=== PATIENT | female | born 1995 | race Caucasian/White ===

== ENCOUNTER → 2016-06-22 | Outpatient (CLI) | payer OTHER ==
--- NOTE | 2016-06-22 17:23 | XR ---
Right knee HISTORY: Right knee pain status post fall one week ago 3 views of the right knee No comparisons Bone mineralization, joint spaces and alignment are maintained. There is no joint effusion. IMPRESSION: No fracture or dislocation.
== END | disposition home or self-care (01) ==
LOC: RADXRMAIN 15:39
PROVIDERS: ATTEND Nurse Practitioner Family
DX: M25.561 Pain in right knee (principal)

== ENCOUNTER 2017-04-20 12:42 | Emergency (ER) | payer OTHER ==
[2017-04-20 12:52] VITALS: BP 126/66; PULSE 94; RESP 18; TEMP 98.2
[2017-04-20] MEDS ORDERED: IBUPROFEN 600 MG TAB PO STA (13:05)
--- NOTE | 2017-04-20 13:09 | ED ---
Abdominal Pain HPI - General Chief Complaint: Abdominal Pain Stated Complaint: Abd/ovary pain Time Seen by Provider: 04/20/17 12:53 Source: patient Mode of arrival: ambulatory Limitations: no limitations - History of Present Illness Initial Comments: 21 yoF presenting with constant, cramping, nonradiating LLQ pain that has been present since 04/12 when her LMP ended. Denies any alleviating or exacerbating factors. Has taken Motrin with some relief. She admits to yellow vaginal discharge as well. Denies being sexually active in the past 2 months, denies N/V /D, F/C. Denies dysuria, hematuria. - Related Data Previous Rx's Medication Instructions Recorded Fluconazole [Diflucan] 150 mg PO ONCE #1 tab 04/20/17 Ibuprofen [Motrin] 600 mg PO Q6HR PRN #20 tab 04/20/17 Nitrofurantoin Monohyd/M-Cryst 100 mg PO Q12HR 5 Days #10 cap 04/20/17 [Macrobid] metroNIDAZOLE [Flagyl] 500 mg PO BID #14 tab 04/20/17 Allergies Allergy/AdvReac Type Severity Reaction Status Date / Time citalopram [From Celexa] Allergy Rash/Hives Verified 04/20/17 12:52 Review of Systems ROS Statement: Those systems with pertinent positive or pertinent negative responses have been documented in the HPI. ROS Other: All systems not noted in ROS Statement are negative. Constitutional: Denies: fever, chills Respiratory: Denies: dyspnea Cardiovascular: Denies: chest pain Gastrointestinal: Reports: abdominal pain. Denies: nausea, vomiting, diarrhea Genitourinary: Reports: discharge. Denies: urgency, dysuria, frequency, hematuria Past Medical History Past Medical History: No Reported History History of Any Multi-Drug Resistant Organisms: None Reported Past Surgical History: No Surgical Hx Reported Additional Past Surgical History / Comment(s): Mole removed left axillary Past Psychological History: No Psychological Hx Reported Smoking Status: Current every day smoker Past Alcohol Use History: Occasional Past Drug Use History: Marijuana General Exam Limitations: no limitations General appearance: alert, in no apparent distress Head exam: Present: atraumatic, normocephalic Eye exam: Present: normal appearance Respiratory exam: Present: normal lung sounds bilaterally. Absent: respiratory distress, wheezes, rales Cardiovascular Exam: Present: regular rate, normal rhythm. Absent: bradycardia , tachycardia GI/Abdominal exam: Present: soft, tenderness (LLQ mild ). Absent: distended, guarding, rebound Speculum exam: Present: vaginal discharge. Absent: vaginal bleeding, foreign body, laceration By manual exam: Present: uterine tenderness. Absent: cervical motion tenderness , adnexal tenderness, adnexal mass, uterine enlargement Extremities exam: Present: full ROM Back exam: Present: full ROM Neurological exam: Present: alert, oriented X3 Psychiatric exam: Present: normal affect, normal mood Course Vital Signs 04/20/17 12:50 Temperature 98.2 F Pulse Rate 94 Respiratory 18 Rate Blood Pressure 126/66 O2 Sat by Pulse 98 Oximetry Medical Decision Making - Medical Decision Making 21 yoF presenting with LLQ pain. On initial exam the patient is awake, alert, and in NAD. VSS. Patient's abdomen is mildly tender to palpation in the LLQ. She is nonperitoneal. At this time unlikely patient is having an ovarian torsion due to the mildlness, onset, duration, and quality of her pain. No indication for imaging. 1325 Patient has some mild suprapubic tenderness on exam. She has declined pretreatment for STIs. Low conern for PID. She was instructed to abstain from sexual intercourse for the next 5 days. Will elect to treat for bacterial vaginosis due to findings on pelvic exam. Patient also found to have a UTI. Patient will be given prescription for diflucan after her UTI and bacterial vaginosis treatment. No further emergent workup indicated at this time. She was instructed to follow up with her PCP or OBGYN in the next 2-3 days and was given return to ED instructions. The patient was discharged in stable condition. - Lab Data Lab Results 04/20/17 04/20/17 Range/Units 13:05 13:05 Urine Color Yellow Urine Appearance Cloudy H (Clear) Urine pH 6.0 (5.0-8.0) Ur Specific [place] 1.013 (1.001-1.035) Urine Protein Negative (Negative) Urine Glucose (UA) Negative (Negative) Urine Ketones Negative (Negative) Urine Blood Negative (Negative) Urine Nitrite Negative (Negative) Urine Bilirubin Negative (Negative) Urine Urobilinogen <2.0 (<2.0) mg/dL Ur Leukocyte Esterase Large H (Negative) Urine RBC 2 (0-5) /hpf Urine WBC 15 H (0-5) /hpf Ur Squamous Epith Cells 5 H (0-4) /hpf Urine Mucus Rare H (None) /hpf Urine HCG, Qual Not Detected (Not Detectd) Disposition Clinical Impression: UTI (urinary tract infection), Bacterial vaginosis Disposition: HOME SELF-CARE Condition: Good Instructions: Urinary Tract Infection in Women (ED), Bacterial Vaginosis (ED), Acute Abdominal Pain (ED) Additional Instructions: Take Diflucan after completion of antibiotics if you have vaginal burning or discharge. Return if you abdominal pain is not controllable with Motrin and Tylenol, you are unable to tolerate food or liquids, or you develop a fever. DO NOT drink alcohol while taking the antibiotics because it can make you very sick. Abstain from sexual activity for the next one week. Prescriptions: Fluconazole [Diflucan] 150 mg PO ONCE #1 tab Ibuprofen [Motrin] 600 mg PO Q6HR PRN #20 tab PRN Reason: Pain metroNIDAZOLE [Flagyl] 500 mg PO BID #14 tab Nitrofurantoin Monohyd/M-Cryst [Macrobid] 100 mg PO Q12HR 5 Days #10 cap Referrals: None,Stated [Primary Care Provider] - 1-2 days
[2017-04-20 13:23] LABS: Appearance,Urine Cloudy (Clear); Bilirubin,Urine Negative (Negative); Blood,Urine Negative (Negative); Color,Urine Yellow; Glucose,Urine (UA) Negative (Negative); Ketones,Urine Negative (Negative); Leukocyte Esterase,Urine Large (Negative); Mucus,Urine Rare /hpf; Protein,Urine Negative (Negative); RBC,Urine 2 /hpf (0-5); Specific Gravity,Urine 1.013 (1.001-1.035); Squamous Epithelial Cell,Urine 5 /hpf (0-4); Urobilinogen,Urine <2.0 mg/dL (<2.0); WBC,Urine 15 /hpf (0-5)
[2017-04-21 13:49] LABS: C. trachomatis,PCR Positive (Neg,Equiv); Chlamydia trachomatis Source Cervix; N. gonorrhoeae,PCR Negative (Neg,Equiv); Neisseria Source Cervix
== END 2017-04-20 13:39 | disposition home or self-care (01) ==
LOC: EC 12:42
DX: N39.0 Urinary tract infection, site not specified (principal); N76.0 Acute vaginitis; B96.89 Other specified bacterial agents as the cause of diseases classified elsewhere; R10.32 Left lower quadrant pain; F17.200 Nicotine dependence, unspecified, uncomplicated; Z88.8 Allergy status to other drugs, medicaments and biological substances
CPT/HCPCS: 81001; 81025; 87070; 87205; 87491; 87591; 87808; 99284

== ENCOUNTER 2018-01-18 03:53 | Emergency (ER) | payer OTHER ==
[2018-01-18] MEDS ORDERED: DEXTROSE 5%-0.45% NACL 1,000 ML IV ONE ×2 (04:25→06:01)
--- NOTE | 2018-01-18 04:31 | ED ---
General Adult HPI - General Chief complaint: Abdominal Pain Stated complaint: Abd Pain, 16 weeks Preg Time Seen by Provider: 01/18/18 04:16 Source: patient Mode of arrival: ambulatory Limitations: no limitations - History of Present Illness Initial comments: This patient is a 22-year-old woman who presents with complaint that she has been having some nausea and vomiting going on for about 2 days and then today also some lower abdominal cramping. The patient states that she believes she is probably had about 5 episodes of vomiting over the course of today. The abdominal pain as a cramping, intermittent, mild intensity. She has not noted worsening or relieving factors. Onset/Timin -: days(s) Location: abdomen Radiation: non-radiation Quality: other (Cramping) Consistency: intermittent Improves with: none Worsens with: none Associated Symptoms: nausea/vomiting - Related Data Previous Rx's Medication Instructions Recorded Fluconazole [Diflucan] 150 mg PO ONCE #1 tab 04/20/17 Ibuprofen [Motrin] 600 mg PO Q6HR PRN #20 tab 04/20/17 Nitrofurantoin Monohyd/M-Cryst 100 mg PO Q12HR 5 Days #10 cap 04/20/17 [Macrobid] metroNIDAZOLE [Flagyl] 500 mg PO BID #14 tab 04/20/17 Allergies Allergy/AdvReac Type Severity Reaction Status Date / Time citalopram [From Celexa] Allergy Rash/Hives Verified 01/18/18 04:00 Review of Systems ROS Statement: Those systems with pertinent positive or pertinent negative responses have been documented in the HPI. ROS Other: All systems not noted in ROS Statement are negative. Constitutional: Denies: fever, chills Respiratory: Denies: cough, dyspnea Cardiovascular: Denies: chest pain, palpitations Gastrointestinal: Reports: abdominal pain, nausea, vomiting. Denies: diarrhea, constipation Genitourinary: Denies: dysuria, frequency, hematuria, discharge, abnormal menses Musculoskeletal: Reports: back pain Skin: Denies: rash Neurological: Denies: headache, weakness, numbness Past Medical History Past Medical History: No Reported History History of Any Multi-Drug Resistant Organisms: None Reported Past Surgical History: No Surgical Hx Reported Additional Past Surgical History / Comment(s): Mole removed left axillary Past Psychological History: No Psychological Hx Reported Smoking Status: Current every day smoker Past Alcohol Use History: None Reported Past Drug Use History: Marijuana General Exam Limitations: no limitations General appearance: alert, in no apparent distress Head exam: Present: atraumatic, normocephalic Eye exam: Present: normal appearance. Absent: scleral icterus, conjunctival injection ENT exam: Present: normal oropharynx Neck exam: Present: normal inspection Respiratory exam: Present: normal lung sounds bilaterally. Absent: respiratory distress, wheezes, rales, rhonchi, stridor Cardiovascular Exam: Present: regular rate, normal rhythm, normal heart sounds. Absent: systolic murmur, diastolic murmur, rubs, gallop GI/Abdominal exam: Present: soft. Absent: distended, tenderness, guarding, rebound, rigid, mass Extremities exam: Present: normal inspection, normal capillary refill. Absent: pedal edema, calf tenderness Back exam: Present: normal inspection. Absent: CVA tenderness (R), CVA tenderness (L) Neurological exam: Present: alert Skin exam: Present: warm, dry, intact, normal color. Absent: rash Course Vital Signs 01/18/18 03:56 Temperature 97.9 F Pulse Rate 104 H Respiratory 18 Rate Blood Pressure 139/82 O2 Sat by Pulse 97 Oximetry Medical Decision Making - Lab Data Result diagrams: 01/18/18 04:10 01/18/18 04:10 Lab Results 01/18/18 01/18/18 01/18/18 Range/Units 04:10 04:10 05:31 WBC 13.4 H (3.8-10.6) k/uL RBC 4.89 (3.80-5.40) m/uL Hgb 13.5 (11.4-16.0) gm/dL Hct 39.8 (34.0-46.0) % MCV 81.5 (80.0-100.0) fL MCH 27.6 (25.0-35.0) pg MCHC 33.8 (31.0-37.0) g/dL RDW 12.9 (11.5-15.5) % Plt Count 248 (150-450) k/uL Neutrophils % 78 % Lymphocytes % 15 % Monocytes % 5 % Eosinophils % 1 % Basophils % 0 % Neutrophils # 10.5 H (1.3-7.7) k/uL Lymphocytes # 2.0 (1.0-4.8) k/uL Monocytes # 0.7 (0-1.0) k/uL Eosinophils # 0.1 (0-0.7) k/uL Basophils # 0.0 (0-0.2) k/uL Sodium 136 L (137-145) mmol/L Potassium 4.3 (3.5-5.1) mmol/L Chloride 106 (98-107) mmol/L Carbon Dioxide 21 L (22-30) mmol/L Anion Gap 9 mmol/L BUN 11 (7-17) mg/dL Creatinine 0.67 (0.52-1.04) mg/dL Est GFR (CKD-EPI)AfAm >90 (>60 ml/min/1.73 sqM) Est GFR (CKD-EPI)NonAf >90 (>60 ml/min/1.73 sqM) Glucose 100 H (74-99) mg/dL Calcium 9.3 (8.4-10.2) mg/dL Total Bilirubin 0.5 (0.2-1.3) mg/dL AST 21 (14-36) U/L ALT 26 (9-52) U/L Alkaline Phosphatase 56 (38-126) U/L Total Protein 6.7 (6.3-8.2) g/dL Albumin 3.8 (3.5-5.0) g/dL Amylase 32 (30-110) U/L Lipase 19 L (23-300) U/L Urine Color Light Yellow Urine Appearance Clear (Clear) Urine pH 5.5 (5.0-8.0) Ur Specific [place] 1.003 (1.001-1.035) Urine Protein Negative (Negative) Urine Glucose (UA) 4+ H (Negative) Urine Ketones 1+ H (Negative) Urine Blood Negative (Negative) Urine Nitrite Negative (Negative) Urine Bilirubin Negative (Negative) Urine Urobilinogen <2.0 (<2.0) mg/dL Ur Leukocyte Esterase Negative (Negative) Disposition Clinical Impression: Vomiting affecting Disposition: HOME SELF-CARE Condition: Good Instructions: Hyperemesis Gravidarum (ED) Is patient prescribed a controlled substance at d/c from ED?: No Referrals: Feliz Medina DO [Primary Care Provider] - 1-2 days
[2018-01-18 04:44] LABS: Basophils % (A) 0 %; Eosinophils # (A) 0.1 k/uL (0-0.7); Eosinophils % (A) 1 %; HCT 39.8 % (34.0-46.0); HGB 13.5 gm/dL (11.4-16.0); Lymphocytes % (A) 15 %; MCH 27.6 pg (25.0-35.0); MCHC 33.8 g/dL (31.0-37.0); MCV 81.5 fL (80.0-100.0); Mean Platelet Volume 6.9; Monocytes # (A) 0.7 k/uL (0-1.0); Monocytes % (A) 5 %; Neutrophils # (A) 10.5 k/uL (1.3-7.7); Neutrophils % (A) 78 %; Platelet Count 248 k/uL (150-450); RBC 4.89 m/uL (3.80-5.40); RDW 12.9 % (11.5-15.5); WBC 13.4 k/uL (3.8-10.6)
[2018-01-18 04:45] LABS: ALT 26 U/L (9-52); AST 21 U/L (14-36); Albumin 3.8 g/dL (3.5-5.0); Alkaline Phosphatase 56 U/L (38-126); Amylase 32 U/L (30-110); Anion Gap 9 mmol/L; Blood Urea Nitrogen 11 mg/dL (7-17); Calcium 9.3 mg/dL (8.4-10.2); Carbon Dioxide 21 mmol/L (22-30); Chloride 106 mmol/L (98-107); Glucose 100 mg/dL (74-99); Lipase 19 U/L (23-300); Potassium 4.3 mmol/L (3.5-5.1); Sodium 136 mmol/L (137-145); Total Bilirubin 0.5 mg/dL (0.2-1.3); Total Protein 6.7 g/dL (6.3-8.2)
[2018-01-18 05:44] LABS: Appearance,Urine Clear (Clear); Bilirubin,Urine Negative (Negative); Blood,Urine Negative (Negative); Color,Urine Light Yellow; Glucose,Urine (UA) 4+ (Negative); Ketones,Urine 1+ (Negative); Leukocyte Esterase,Urine Negative (Negative); Nitrite,Urine Negative (Negative); PH, Urine 5.5 (5.0-8.0); Protein,Urine Negative (Negative); Specific Gravity,Urine 1.003 (1.001-1.035); Urobilinogen,Urine <2.0 mg/dL (<2.0)
[2018-01-18 06:57] VITALS: BP 113/75; PULSE 66; RESP 20; TEMP 98.3
== END 2018-01-18 08:22 | disposition home or self-care (01) ==
LOC: EC 03:53
DX: O21.9 Vomiting of pregnancy, unspecified (principal); O99.89 Other specified diseases and conditions complicating pregnancy, childbirth and the puerperium; R10.30 Lower abdominal pain, unspecified; O99.332 Smoking (tobacco) complicating pregnancy, second trimester; F17.200 Nicotine dependence, unspecified, uncomplicated; Z3A.16 16 weeks gestation of pregnancy; Z88.8 Allergy status to other drugs, medicaments and biological substances
CPT/HCPCS: 36415; 80053; 81003; 82150; 83690; 85025; 96360; 96361; 99284

== ENCOUNTER 2018-12-13 19:26 | Observation (INO) | payer OTHER ==
[2018-12-13] MEDS ORDERED: ONDANSETRON 4 MG/2 ML VIAL IVP STA (20:49)
[2018-12-13] MEDS ORDERED: KETOROLAC 30 MG/ML 1 ML VIAL IVP STA (20:49)
[2018-12-13] MEDS ORDERED: SODIUM CHLORIDE 0.9% 1,000 ML IV STA (20:49)
[2018-12-13 21:22] LABS: Basophils # (A) 0.2 k/uL (0-0.2); Basophils % (A) 1 %; Eosinophils # (A) 0.3 k/uL (0-0.7); Eosinophils % (A) 2 %; HCT 43.4 % (34.0-46.0); HGB 13.9 gm/dL (11.4-16.0); Lymphocytes # (A) 2.6 k/uL (1.0-4.8); Lymphocytes % (A) 16 %; MCH 25.5 pg (25.0-35.0); MCHC 32.1 g/dL (31.0-37.0); MCV 79.5 fL (80.0-100.0); Mean Platelet Volume 6.5; Monocytes # (A) 0.8 k/uL (0-1.0); Monocytes % (A) 5 %; Neutrophils % (A) 75 %; Platelet Count 330 k/uL (150-450); RBC 5.47 m/uL (3.80-5.40); RDW 13.4 % (11.5-15.5); WBC 16.1 k/uL (3.8-10.6)
[2018-12-13 21:40] LABS: ALT 31 U/L (9-52); AST 33 U/L (14-36); African American GFR (CKD) >90 (>60 ml/min/1.73 sqM); Albumin 4.2 g/dL (3.5-5.0); Alkaline Phosphatase 93 U/L (38-126); Amylase 40 U/L (30-110); Anion Gap 9 mmol/L; Blood Urea Nitrogen 17 mg/dL (7-17); Calcium 9.3 mg/dL (8.4-10.2); Carbon Dioxide 26 mmol/L (22-30); Chloride 107 mmol/L (98-107); Glucose 112 mg/dL (74-99); Potassium 4.1 mmol/L (3.5-5.1); Sodium 142 mmol/L (137-145); Total Bilirubin 0.3 mg/dL (0.2-1.3); Total Protein 7.6 g/dL (6.3-8.2)
--- NOTE | 2018-12-13 21:52 | US ---
EXAMINATION TYPE: US abdomen limited DATE OF EXAM: 12/13/2018 COMPARISON: NONE CLINICAL HISTORY: Right upper quadrant. Epigastric pain x 3 hours. Nausea/vomiting. EXAM MEASUREMENTS: Liver Length: 17.4 cm Gallbladder Wall: 0.29 cm CBD: 0.54 cm Right Kidney: 12.6 x 5.6 x 4.8 cm Patient gassy, patient 295 lbs. Pancreas: Limited due to overlying bowel gas Liver: Measures upper limits of normal Gallbladder: Multiple hyperechoic foci with posterior shadowing seen within the gallbladder Evidence for sonographic Huber's sign: yes CBD: appears wnl Right Kidney: Measures upper limits of normal vs. slightly enlarged. IMPRESSION: There are numerous gallstones. No dilated ducts. Distended gallbladder.
[2018-12-13 22:15] LABS: Bacteria,Urine Occasional /hpf; Mucus,Urine Rare /hpf; Squamous Epithelial Cell,Urine 7 /hpf (0-4)
[2018-12-13 22:20] LABS: Appearance,Urine Bloody (Clear)
[2018-12-13 22:21] LABS: Color,Urine Red; RBC,Urine >182 /hpf (0-5)
--- NOTE | 2018-12-13 23:12 | ED ---
Abdominal Pain HPI - General Chief Complaint: Abdominal Pain Stated Complaint: abd pain Time Seen by Provider: 12/13/18 19:46 Source: patient Mode of arrival: ambulatory Limitations: no limitations - History of Present Illness Initial Comments: 23-year-old female patient presents to the emergency department today for evaluation of upper abdominal pain and vomiting. Patient states pain has been present for the last 3 hours. States it started right after eating a piece of pizza. Patient states she has had similar episodes in the past but none ever l asted this long. States pain is in her midepigastric and right upper quadrant. She state it raditaes to her back and bilateral shoulders. Patient states that she has vomited several times since symptom onset. Denies fever or chills. Denies any constipation or diarrhea. Patient states she has had the past and no other abdominal surgeries. She denies any recent travel or sick contacts. Denies any recent antibiotic use. Patient denies any recent rash, shortness breath, chest pain, back pain, numbness, tingling, dizziness, weakness, hematuria, dysuria, urinary urgency, urinary frequency, headache, visual changes, or any other complaints. Patient is on her period. Denies chance of . - Related Data Home Medications Medication Instructions Recorded Confirmed Famotidine 20 mg PO BID PRN 12/13/18 12/13/18 Omeprazole 20 mg PO DAILY PRN 12/13/18 12/13/18 Ibuprofen [Motrin] 800 mg PO TID PRN 12/14/18 12/14/18 Allergies Allergy/AdvReac Type Severity Reaction Status Date / Time citalopram [From Celexa] Allergy Rash/Hives Verified 12/14/18 00:26 Review of Systems ROS Statement: Those systems with pertinent positive or pertinent negative responses have been documented in the HPI. ROS Other: All systems not noted in ROS Statement are negative. Past Medical History Past Medical History: No Reported History History of Any Multi-Drug Resistant Organisms: None Reported Past Surgical History: No Surgical Hx Reported, Section Additional Past Surgical History / Comment(s): Mole removed left axillary Past Psychological History: No Psychological Hx Reported Smoking Status: Current every day smoker Past Alcohol Use History: Occasional Past Drug Use History: Marijuana General Exam Limitations: no limitations General appearance: alert, in no apparent distress, other (This is a well- developed, well-nourished adult female patient in no acute distress. Vital signs upon presentation are temperature 97.4F, pulse 71, respirations 20, blood pressure 133/73, pulse ox 100% on room air.) Eye exam: Present: normal appearance, PERRL, EOMI. Absent: scleral icterus, conjunctival injection, periorbital swelling ENT exam: Present: normal exam, normal oropharynx, mucous membranes moist Respiratory exam: Present: normal lung sounds bilaterally. Absent: respiratory distress, wheezes, rales, rhonchi, stridor Cardiovascular Exam: Present: regular rate, normal rhythm, normal heart sounds. Absent: systolic murmur, diastolic murmur, rubs, gallop, clicks GI/Abdominal exam: Present: soft, tenderness (midepigastric and right upper quadrant tenderness. Positive huber's sign.), normal bowel sounds. Absent: distended, guarding, rebound, rigid Back exam: Present: normal inspection. Absent: CVA tenderness (R), CVA tenderness (L) Neurological exam: Present: alert, oriented X3, CN II-XII intact Psychiatric exam: Present: normal affect, normal mood Skin exam: Present: warm, dry, intact, normal color. Absent: rash Course Vital Signs 12/13/18 12/13/18 12/14/18 19:41 23:03 00:15 Temperature 97.4 F L 97.4 F L Pulse Rate 71 81 68 Respiratory 20 16 18 Rate Blood Pressure 133/73 125/74 136/92 O2 Sat by Pulse 100 99 98 Oximetry Medical Decision Making - Medical Decision Making 23-year-old female patient presented to the emergency department today for evaluation of midepigastric abdominal pain and vomiting. Physical examination did reveal midepigastric and right upper quadrant tenderness. Positive Huber sign. Labs reviewed and did reveal elevated white blood cell count at 16,000. Ultrasound was obtained and did show evidence for cholelithiasis and distended gallbladder. She'll be admitted for further evaluation by surgical services. Dr. Farrell is accepting. - Lab Data Result diagrams: 12/13/18 21:03 12/13/18 21:03 Lab Results 12/13/18 12/13/18 12/13/18 Range/Units 21:03 21:03 21:42 WBC 16.1 H (3.8-10.6) k/uL RBC 5.47 H (3.80-5.40) m/uL Hgb 13.9 (11.4-16.0) gm/dL Hct 43.4 (34.0-46.0) % MCV 79.5 L (80.0-100.0) fL MCH 25.5 (25.0-35.0) pg MCHC 32.1 (31.0-37.0) g/dL RDW 13.4 (11.5-15.5) % Plt Count 330 (150-450) k/uL Neutrophils % 75 % Lymphocytes % 16 % Monocytes % 5 % Eosinophils % 2 % Basophils % 1 % Neutrophils # 12.0 H (1.3-7.7) k/uL Lymphocytes # 2.6 (1.0-4.8) k/uL Monocytes # 0.8 (0-1.0) k/uL Eosinophils # 0.3 (0-0.7) k/uL Basophils # 0.2 (0-0.2) k/uL Sodium 142 (137-145) mmol/L Potassium 4.1 (3.5-5.1) mmol/L Chloride 107 (98-107) mmol/L Carbon Dioxide 26 (22-30) mmol/L Anion Gap 9 mmol/L BUN 17 (7-17) mg/dL Creatinine 0.71 (0.52-1.04) mg/dL Est GFR (CKD-EPI)AfAm >90 (>60 ml/min/1.73 sqM) Est GFR (CKD-EPI)NonAf >90 (>60 ml/min/1.73 sqM) Glucose 112 H (74-99) mg/dL Calcium 9.3 (8.4-10.2) mg/dL Total Bilirubin 0.3 (0.2-1.3) mg/dL AST 33 (14-36) U/L ALT 31 (9-52) U/L Alkaline Phosphatase 93 (38-126) U/L Total Protein 7.6 (6.3-8.2) g/dL Albumin 4.2 (3.5-5.0) g/dL Amylase 40 (30-110) U/L Lipase 27 (23-300) U/L Urine Color Urine Appearance (Clear) Urine RBC (0-5) /hpf Ur Squamous Epith Cells (0-4) /hpf Urine Bacteria (None) /hpf Urine Mucus (None) /hpf Urine HCG, Qual Not Detected (Not Detectd) 12/13/18 Range/Units 21:42 WBC (3.8-10.6) k/uL RBC (3.80-5.40) m/uL Hgb (11.4-16.0) gm/dL Hct (34.0-46.0) % MCV (80.0-100.0) fL MCH (25.0-35.0) pg MCHC (31.0-37.0) g/dL RDW (11.5-15.5) % Plt Count (150-450) k/uL Neutrophils % % Lymphocytes % % Monocytes % % Eosinophils % % Basophils % % Neutrophils # (1.3-7.7) k/uL Lymphocytes # (1.0-4.8) k/uL Monocytes # (0-1.0) k/uL Eosinophils # (0-0.7) k/uL Basophils # (0-0.2) k/uL Sodium (137-145) mmol/L Potassium (3.5-5.1) mmol/L Chloride (98-107) mmol/L Carbon Dioxide (22-30) mmol/L Anion Gap mmol/L BUN (7-17) mg/dL Creatinine (0.52-1.04) mg/dL Est GFR (CKD-EPI)AfAm (>60 ml/min/1.73 sqM) Est GFR (CKD-EPI)NonAf (>60 ml/min/1.73 sqM) Glucose (74-99) mg/dL Calcium (8.4-10.2) mg/dL Total Bilirubin (0.2-1.3) mg/dL AST (14-36) U/L ALT (9-52) U/L Alkaline Phosphatase (38-126) U/L Total Protein (6.3-8.2) g/dL Albumin (3.5-5.0) g/dL Amylase (30-110) U/L Lipase (23-300) U/L Urine Color Red Urine Appearance Bloody H (Clear) Urine RBC >182 H (0-5) /hpf Ur Squamous Epith Cells 7 H (0-4) /hpf Urine Bacteria Occasional H (None) /hpf Urine Mucus Rare H (None) /hpf Urine HCG, Qual (Not Detectd) - Radiology Data Radiology results: report reviewed Ultrasound of the abdomen is obtained. Report was reviewed in its entirety. Impression by Dr. Bradford shows numerous gallstones. No dilated ducts. Distended gallbladder. Disposition Clinical Impression: Cholelithiasis, Abdominal pain Disposition: ADMITTED IP TO THIS [facility] Condition: Serious Decision to Admit Reason: Admit from EC Decision Date: 12/13/18 Decision Time: 23:57
[2018-12-13] MEDS ORDERED: NALOXONE 0.4 MG/ML 1 ML VIAL IV PRN (23:40)
[2018-12-13] MEDS ORDERED: ONDANSETRON 4 MG/2 ML VIAL IVP PRN (23:40)
[2018-12-13] MEDS: SODIUM CHLORIDE 0.9% 1,000 ML IV SCH (23:53)
--- NOTE | 2018-12-14 08:07 | P.GSHP ---
<Natalie Murray A - Last Filed: 12/14/18 08:01> History of Present Illness H&P Date: 12/14/18 Chief Complaint: abdominal pain CHIEF COMPLAINT: Abdominal pain HISTORY OF PRESENT ILLNESS: A 23-year-old female presented to the emergency room with a chief complaint of abdominal pain. Patient states she began having mid abdominal/epigastric pain that began yesterday around 6 PM. She states that the time she was sitting on the couch watching TV. She had recently finished eating dinner. She reports eating pizza when shortly afterwards she began having severe pain. She states the pain radiated up to her chest, into her shoulders, and into her back. She also reports nausea and vomiting yesterday which have since resolved. patient reports she has had multiple episodes of similar pain in the past but this is the worst it has been. She gave 5 months ago. She states she began having episodes when she was 11 weeks . She was evaluated at [facility] in October 2018 and was prescribed Pepcid and omeprazole. She states sometimes this helps her symptoms but yesterday after she took them she had no relief. PAST MEDICAL HISTORY: See list. PAST SURGICAL HISTORY: See list. SOCIAL HISTORY: No illicit drug use. REVIEW OF SYSTEMS: CONSTITUTIONAL: Denies fever or chills. HEENT: Denies blurred vision, vision changes, or eye pain. Denies hemoptysis CARDIOVASCULAR: Denies chest pain or pressure. RESPIRATORY: No shortness of breath. GASTROINTESTINAL: Refer to HPI for pertinent findings HEMATOLOGIC: Denies bleeding disorders. GENITOURINARY: Denies any blood in urine. SKIN: Denies pruitis. Denies rash. PHYSICAL EXAM: VITAL SIGNS: Reviewed. GENERAL: Well-developed in no acute distress. HEENT: No sclera icterus. Extraocular movements grossly intact. Moist buccal mucosa. Head is atraumatic, normocephalic. ABDOMEN: Obese. Soft. Nondistended. Tenderness with palpation to right upper quadrant. NEUROLOGIC: Alert and oriented. Cranial nerves II through XII grossly intact. LABORATORY DATA: WBC 16.1. Hemoglobin 13.9. Platelet count 330. Bilirubin 0.3. AST 33. ALT 31. Amylase 40. Lipase 27. IMAGING: Ultrasound abdomen: Numerous gallstones. No dilated ducts. Distended gallbladder. Positive Sonographic Huber sign. ASSESSMENT: 1. Abdominal pain, nausea, vomiting 2. Cholelithiasis 3. Leukocytosis PLAN: NPO. Monitor WBC. Begin Zosyn. Continue IV fluids. Repeat CBC and CMP this morning. Patient to undergo laparoscopic cholecystectomy today with Dr. Farrell. Nurse practitioner note has been reviewed by physician. Signing provider agrees with the documented findings, assessment, and plan of care. Past Medical History Past Medical History: No Reported History History of Any Multi-Drug Resistant Organisms: None Reported Past Surgical History: No Surgical Hx Reported, Section Additional Past Surgical History / Comment(s): Mole removed left axillary Past Psychological History: No Psychological Hx Reported Smoking Status: Current every day smoker Past Alcohol Use History: Occasional Past Drug Use History: Marijuana - Past Family History Father Additional Family Medical History / Comment(s): neck fusion, lyme disease Mother Family Medical History: Diabetes Mellitus, Hypertension Additional Family Medical History / Comment(s): Arthritis Medications and Allergies Home Medications Medication Instructions Recorded Confirmed Type Famotidine 20 mg PO BID PRN 12/13/18 12/13/18 History Omeprazole 20 mg PO DAILY PRN 12/13/18 12/13/18 History Hydrocodone/Acetaminophen [[place] 1 tab PO Q6HR PRN 3 Days #12 tab 12/14/18 Rx 5-325] Ibuprofen [Motrin] 800 mg PO TID PRN 12/14/18 12/14/18 History Allergies Allergy/AdvReac Type Severity Reaction Status Date / Time citalopram [From Celexa] Allergy Rash/Hives Verified 12/14/18 00:26 Surgical - Exam Vital Signs Temp Pulse Resp BP Pulse Ox 97.4 F L 71 20 133/73 100 12/13/18 19:41 12/13/18 19:41 12/13/18 19:41 12/13/18 19:41 12/13/18 19:41 Results - Labs 12/13/18 21:03 12/13/18 21:03 Abnormal Lab Results - Last 24 Hours (Table) 12/13/18 12/13/18 12/13/18 Range/Units 21:03 21:03 21:42 WBC 16.1 H (3.8-10.6) k/uL RBC 5.47 H (3.80-5.40) m/uL MCV 79.5 L (80.0-100.0) fL Neutrophils # 12.0 H (1.3-7.7) k/uL Glucose 112 H (74-99) mg/dL Urine Appearance Bloody H (Clear) Urine RBC >182 H (0-5) /hpf Ur Squamous Epith Cells 7 H (0-4) /hpf Urine Bacteria Occasional H (None) /hpf Urine Mucus Rare H (None) /hpf Diabetes panel 12/13/18 Range/Units 21:03 Sodium 142 (137-145) mmol/L Potassium 4.1 (3.5-5.1) mmol/L Chloride 107 (98-107) mmol/L Carbon Dioxide 26 (22-30) mmol/L BUN 17 (7-17) mg/dL Creatinine 0.71 (0.52-1.04) mg/dL Glucose 112 H (74-99) mg/dL Calcium 9.3 (8.4-10.2) mg/dL AST 33 (14-36) U/L ALT 31 (9-52) U/L Alkaline Phosphatase 93 (38-126) U/L Total Protein 7.6 (6.3-8.2) g/dL Albumin 4.2 (3.5-5.0) g/dL Calcium panel 12/13/18 Range/Units 21:03 Calcium 9.3 (8.4-10.2) mg/dL Albumin 4.2 (3.5-5.0) g/dL Pituitary panel 12/13/18 Range/Units 21:03 Sodium 142 (137-145) mmol/L Potassium 4.1 (3.5-5.1) mmol/L Chloride 107 (98-107) mmol/L Carbon Dioxide 26 (22-30) mmol/L BUN 17 (7-17) mg/dL Creatinine 0.71 (0.52-1.04) mg/dL Glucose 112 H (74-99) mg/dL Calcium 9.3 (8.4-10.2) mg/dL Adrenal panel 12/13/18 Range/Units 21:03 Sodium 142 (137-145) mmol/L Potassium 4.1 (3.5-5.1) mmol/L Chloride 107 (98-107) mmol/L Carbon Dioxide 26 (22-30) mmol/L BUN 17 (7-17) mg/dL Creatinine 0.71 (0.52-1.04) mg/dL Glucose 112 H (74-99) mg/dL Calcium 9.3 (8.4-10.2) mg/dL Total Bilirubin 0.3 (0.2-1.3) mg/dL AST 33 (14-36) U/L ALT 31 (9-52) U/L Alkaline Phosphatase 93 (38-126) U/L Total Protein 7.6 (6.3-8.2) g/dL Albumin 4.2 (3.5-5.0) g/dL <Dominick Farrell - Last Filed: 12/14/18 14:53> History of Present Illness As above. Patient with acute cholecystitis. We'll proceed with laparoscopic, possible open cholecystectomy today. Risks of bleeding, infection, bile leak, bile duct injury, retained common bile duct stone, trocar injury, conversion to an open procedure, hernia, anesthesia related complications were reviewed. The patient understands and wishes to proceed. Surgical - Exam Vital Signs Temp Pulse Resp BP Pulse Ox 97.4 F L 71 20 133/73 100 12/13/18 19:41 12/13/18 19:41 12/13/18 19:41 12/13/18 19:41 12/13/18 19:41 Results - Labs 12/14/18 08:37 12/14/18 08:37 Abnormal Lab Results - Last 24 Hours (Table) 12/13/18 12/13/18 12/13/18 Range/Units 21:03 21:03 21:42 WBC 16.1 H (3.8-10.6) k/uL RBC 5.47 H (3.80-5.40) m/uL MCV 79.5 L (80.0-100.0) fL Neutrophils # 12.0 H (1.3-7.7) k/uL Chloride (98-107) mmol/L Glucose 112 H (74-99) mg/dL Urine Appearance Bloody H (Clear) Urine RBC >182 H (0-5) /hpf Ur Squamous Epith Cells 7 H (0-4) /hpf Urine Bacteria Occasional H (None) /hpf Urine Mucus Rare H (None) /hpf 12/14/18 Range/Units 08:37 WBC (3.8-10.6) k/uL RBC (3.80-5.40) m/uL MCV (80.0-100.0) fL Neutrophils # (1.3-7.7) k/uL Chloride 109 H (98-107) mmol/L Glucose (74-99) mg/dL Urine Appearance (Clear) Urine RBC (0-5) /hpf Ur Squamous Epith Cells (0-4) /hpf Urine Bacteria (None) /hpf Urine Mucus (None) /hpf Diabetes panel 12/13/18 12/14/18 Range/Units 21:03 08:37 Sodium 142 143 (137-145) mmol/L Potassium 4.1 4.3 (3.5-5.1) mmol/L Chloride 107 109 H (98-107) mmol/L Carbon Dioxide 26 29 (22-30) mmol/L BUN 17 15 (7-17) mg/dL Creatinine 0.71 0.80 (0.52-1.04) mg/dL Glucose 112 H 94 (74-99) mg/dL Calcium 9.3 8.8 (8.4-10.2) mg/dL AST 33 27 (14-36) U/L ALT 31 40 (9-52) U/L Alkaline Phosphatase 93 74 (38-126) U/L Total Protein 7.6 6.4 (6.3-8.2) g/dL Albumin 4.2 3.5 (3.5-5.0) g/dL Calcium panel 12/13/18 12/14/18 Range/Units 21:03 08:37 Calcium 9.3 8.8 (8.4-10.2) mg/dL Albumin 4.2 3.5 (3.5-5.0) g/dL Pituitary panel 12/13/18 12/14/18 Range/Units 21:03 08:37 Sodium 142 143 (137-145) mmol/L Potassium 4.1 4.3 (3.5-5.1) mmol/L Chloride 107 109 H (98-107) mmol/L Carbon Dioxide 26 29 (22-30) mmol/L BUN 17 15 (7-17) mg/dL Creatinine 0.71 0.80 (0.52-1.04) mg/dL Glucose 112 H 94 (74-99) mg/dL Calcium 9.3 8.8 (8.4-10.2) mg/dL Adrenal panel 12/13/18 12/14/18 Range/Units 21:03 08:37 Sodium 142 143 (137-145) mmol/L Potassium 4.1 4.3 (3.5-5.1) mmol/L Chloride 107 109 H (98-107) mmol/L Carbon Dioxide 26 29 (22-30) mmol/L BUN 17 15 (7-17) mg/dL Creatinine 0.71 0.80 (0.52-1.04) mg/dL Glucose 112 H 94 (74-99) mg/dL Calcium 9.3 8.8 (8.4-10.2) mg/dL Total Bilirubin 0.3 0.6 (0.2-1.3) mg/dL AST 33 27 (14-36) U/L ALT 31 40 (9-52) U/L Alkaline Phosphatase 93 74 (38-126) U/L Total Protein 7.6 6.4 (6.3-8.2) g/dL Albumin 4.2 3.5 (3.5-5.0) g/dL
[2018-12-14] MEDS: PANTOPRAZOLE 40 MG/10 ML VIAL IVP SCH (08:31)
[2018-12-14] MEDS: PIPERACILLIN-TAZOBACTAM 3.375 GM in SODIUM CHLORIDE 0.9% 100 ML IVPB SCH ×2 (08:31→17:53)
[2018-12-14 09:07] LABS: ALT 40 U/L (9-52); AST 27 U/L (14-36); African American GFR (CKD) >90 (>60 ml/min/1.73 sqM); Albumin 3.5 g/dL (3.5-5.0); Alkaline Phosphatase 74 U/L (38-126); Anion Gap 5 mmol/L; Blood Urea Nitrogen 15 mg/dL (7-17); Calcium 8.8 mg/dL (8.4-10.2); Carbon Dioxide 29 mmol/L (22-30); Chloride 109 mmol/L (98-107); Glucose 94 mg/dL (74-99); Potassium 4.3 mmol/L (3.5-5.1); Sodium 143 mmol/L (137-145); Total Bilirubin 0.6 mg/dL (0.2-1.3); Total Protein 6.4 g/dL (6.3-8.2)
[2018-12-14 09:14] LABS: Basophils % (A) 0 %; Eosinophils # (A) 0.3 k/uL (0-0.7); Eosinophils % (A) 3 %; HCT 37.9 % (34.0-46.0); HGB 12.3 gm/dL (11.4-16.0); Lymphocytes % (A) 20 %; MCH 26.3 pg (25.0-35.0); MCHC 32.5 g/dL (31.0-37.0); MCV 80.9 fL (80.0-100.0); Mean Platelet Volume 5.8; Monocytes # (A) 0.5 k/uL (0-1.0); Monocytes % (A) 5 %; Neutrophils % (A) 69 %; Platelet Count 304 k/uL (150-450); RBC 4.68 m/uL (3.80-5.40); WBC 10.2 k/uL (3.8-10.6)
[2018-12-14] MEDS ORDERED: IV FLUID CONTINUATION 1,000 ML IV ONE (13:58)
[2018-12-14] MEDS: ONDANSETRON 4 MG/2 ML VIAL IVP ONE ×2 (14:19→16:50)
[2018-12-14] MEDS ORDERED: DEXAMETHASONE SOD PHOSPHATE 10 MG/ML 1 ML VIAL IV ONE (14:20)
[2018-12-14] MEDS ORDERED: SCOPOLAMINE 1.5MG/72HR PATCH TRANSDERM ONE (14:20)
[2018-12-14] MEDS ORDERED: HEPARIN SODIUM,PORCINE 5,000 UNIT/ML 1 ML VIAL SQ ONE (14:53)
[2018-12-14] MEDS ORDERED: LACTATED RINGERS 1,000 ML IV ONE ×2 (15:05→17:00)
[2018-12-14] MEDS ORDERED: PROPOFOL 10 MG/ML 20 ML VIAL IV ONE (15:08)
[2018-12-14] MEDS ORDERED: ROCURONIUM BROMIDE 10 MG/ML 10 ML VIAL IV ONE (15:08)
[2018-12-14] MEDS ORDERED: KETOROLAC 30 MG/ML 1 ML VIAL ONE (15:08)
[2018-12-14] MEDS ORDERED: NEOSTIGMINE 1 MG/ML 10 ML VIAL ONE (15:08)
[2018-12-14] MEDS ORDERED: LIDOCAINE 1% INJ 10MG/ML (20 ML MDV) ONE (15:08)
[2018-12-14] MEDS ORDERED: GLYCOPYRROLATE 0.2 MG/ML 2 ML VIAL ONE (15:08)
[2018-12-14] MEDS ORDERED: MIDAZOLAM 2 MG/2 ML VIAL ONE (15:08)
[2018-12-14] MEDS ORDERED: SUCCINYLCHOLINE CHLORIDE 100 MG/5 ML SYR IV ONE (15:08)
[2018-12-14] MEDS ORDERED: fentaNYL (PF) 50 MCG/ML 2 ML AMP ONE (15:08)
[2018-12-14] MEDS ORDERED: BUPIVACAINE (PF) 0.25% 30 ML VIAL SQ ONE ×2 (15:29)
--- NOTE | 2018-12-14 16:29 | P.OP ---
Date of Procedure: 12/14/18 Procedure(s) Performed: PREOPERATIVE DIAGNOSIS: Acute cholecystitis POSTOPERATIVE DIAGNOSIS: Same PROCEDURE: Laparoscopic cholecystectomy SURGEON: Jami EBL: Minimal see anesthesia record ANESTHESIA: Gen. COMPLICATIONS: None OPERATIVE PROCEDURE: The patient was brought and placed on the operating room table in the supine position. The patient was placed under general anesthesia at that time. The abdomen was prepped and draped in the usual sterile fashion. A small vertical infraumbilical incision was made. The fascia was grasped with the Bebeto forceps. The fascia was retracted anteriorly. The Veress needle was advanced into the peritoneal cavity. The saline drop test was normal. Insufflation took place up to 15 mmHg. A 5 mm optical trocar was advanced and the peritoneal cavity. 2 additional 5 mm trochars were placed in the right upper quadrant under direct visualization. A 12 mm trocar was advanced into the epigastric incision site. The gallbladder was retracted superiorly and laterally. The peritoneum overlying the infundibulum was bluntly dissected. The patient's cystic duct was visualized. The junction between the cystic duct common and hepatic duct was identified. The patient's cystic duct was quite short and are visualization given her degree of obesity was somewhat limited. I decided to divide the cystic duct using a 2-0 Ethibond tied down using the tie knot device. An additional clip was also placed adjacent to the tie knot and these were left on the patient's side. The cystic duct was then divided on the specimen side. The cystic artery was identified and clipped as well. A small vessel was seen along the gallbladder fossa and clipped as well. The ga llbladder was then removed from the liver bed using electrocautery. The gallbladder was then removed from the epigastric trocar site with an Endo Catch bag. The gallbladder fossa was irrigated with saline. There was no evidence of any bleeding or biliary drainage seen. The fascia at the 12 millimeter site was closed using a [place] 0 Vicryl stitch. The trochars were then removed. The skin at all 4 sites was closed using a 4-0 Monocryl stitch. Skin glue was utilized on the incision sites. At the end of this procedure the sponge and needle counts were correct. DISPOSITION: Stable to the recovery room
[2018-12-14] MEDS: HYDROmorphone 0.5 MG/0.5 ML SYRINGE IVP ONE ×3 (16:50→17:18)
[2018-12-14] MEDS ORDERED: diphenhydrAMINE 50 MG/ML 1 ML VIAL IVP ONE (16:56)
[2018-12-14] MEDS: HEPARIN SODIUM,PORCINE 5,000 UNIT/ML 1 ML VIAL SQ SCH (17:53)
[2018-12-14] MEDS: HYDROcodone/APAP 5-325MG 1 EACH TAB PO PRN (18:25)
[2018-12-14 20:34] VITALS: RESP 18
[2018-12-14] MEDS: MORPHINE SULFATE 4 MG/ML SYRINGE IV PRN (20:36)
[2018-12-14] MEDS: SODIUM CHLORIDE 0.9% 1,000 ML IV SCH (20:36)
[2018-12-15] MEDS: HEPARIN SODIUM,PORCINE 5,000 UNIT/ML 1 ML VIAL SQ SCH ×2 (00:38→07:56)
[2018-12-15] MEDS: MORPHINE SULFATE 4 MG/ML SYRINGE IV PRN (01:08)
[2018-12-15] MEDS ORDERED: PIPERACILLIN-TAZOBACTAM 3.375 GM in SODIUM CHLORIDE 0.9% 100 ML IVPB SCH (02:00)
[2018-12-15] MEDS: HYDROcodone/APAP 5-325MG 1 EACH TAB PO PRN (07:55)
[2018-12-15] MEDS: SODIUM CHLORIDE 0.9% 1,000 ML IV SCH (07:56)
[2018-12-15] MEDS: PANTOPRAZOLE 40 MG/10 ML VIAL IVP SCH (07:56)
[2018-12-15 08:45] VITALS: BP 121/73; PULSE 44; TEMP 97.5
--- NOTE | 2018-12-15 09:57 | P.DS ---
Providers Date of admission: 12/13/18 23:40 Expected date of discharge: 12/15/18 Attending physician: Dominick Farrell Primary care physician: Feliz Medina [facility] Course: Patient was admitted through the emergency department with right upper quadrant pain. Patient's workup showed acute cholecystitis. Underwent laparoscopic cholecystectomy yesterday. Today the patient is doing better. Pain is improved. Tolerating diet. We'll discharge today follow-up one week. Patient Condition at Discharge: Serious Plan - Discharge Summary New Discharge Prescriptions: New Hydrocodone/Acetaminophen [[place] 5-325] 1 tab PO Q6HR PRN 3 Days #12 tab PRN Reason: Pain No Action Omeprazole 20 mg PO DAILY PRN PRN Reason: Gi Upset Famotidine 20 mg PO BID PRN PRN Reason: Gi Upset Ibuprofen [Motrin] 800 mg PO TID PRN PRN Reason: Pain Discharge Medication List Famotidine 20 mg PO BID PRN 12/13/18 [History] Omeprazole 20 mg PO DAILY PRN 12/13/18 [History] Hydrocodone/Acetaminophen [[place] 5-325] 1 tab PO Q6HR PRN 3 Days #12 tab 12/14/18 [Rx] Ibuprofen [Motrin] 800 mg PO TID PRN 12/14/18 [History] Follow up Appointment(s)/Referral(s): Dominick Farrell MD [Medical Doctor] - 1 Week Feliz Medina DO [Primary Care Provider] - 1-2 days Activity/Diet/Wound Care/Special Instructions: No driving while taking [place] No lifting over 10 pounds You may shower. No soaking or tub baths Very light activity until you are reevaluated at your follow up appointment with your surgeon
== END 2018-12-15 10:43 | disposition home or self-care (01) ==
LOC: EC 19:26 → 1SOBS 23:40
PROVIDERS: ADMIT Surgery; ATTEND Surgery
DX: K80.12 Calculus of gallbladder with acute and chronic cholecystitis without obstruction (principal); E66.9 Obesity, unspecified; Z68.42 Body mass index [BMI] 45.0-49.9, adult; K21.9 Gastro-esophageal reflux disease without esophagitis; F17.210 Nicotine dependence, cigarettes, uncomplicated; Z79.899 Other long term (current) drug therapy; Z79.1 Long term (current) use of non-steroidal anti-inflammatories (NSAID); Z79.891 Long term (current) use of opiate analgesic; Z88.8 Allergy status to other drugs, medicaments and biological substances; Z83.3 Family history of diabetes mellitus; Z82.49 Family history of ischemic heart disease and other diseases of the circulatory system; Z82.61 Family history of arthritis; Z82.69 Family history of other diseases of the musculoskeletal system and connective tissue; Z83.2 Family history of diseases of the blood and blood-forming organs and certain disorders involving the immune mechanism
CPT/HCPCS: 47562; 96361; 96374; 96375; 99285; 36415; 81025 ×2; 88304; 80053 ×2; 82150; 83690; 85025 ×2; 81001; 76705; G0378 ×2; J2543 ×2; J2250; J2270 ×2; J1200; J1644 ×2; J1100; J2710; J2405 ×2; J2001; J3010; J1885 ×2; J0330; J2704; C9113 ×2; J1170

== ENCOUNTER 2018-12-16 08:26 | Emergency (ER) | payer OTHER ==
[2018-12-16] MEDS ORDERED: KETOROLAC 60 MG/2 ML VIAL IVP STA (08:50)
[2018-12-16] MEDS ORDERED: DIAZEPAM 5 MG/ML 2 ML INJ IVP STA (08:50)
[2018-12-16] MEDS ORDERED: KETOROLAC 30 MG/ML 1 ML VIAL IVP STA (08:53)
--- NOTE | 2018-12-16 08:56 | ED ---
General Adult HPI - General Chief complaint: Back Pain/Injury Stated complaint: Back Pain Time Seen by Provider: 12/16/18 08:26 Source: patient, RN notes reviewed, old records reviewed Mode of arrival: EMS Limitations: no limitations - History of Present Illness Initial comments: This is a 23-year-old female presents emergency Department complaining of lower back pain. Patient states she just got home after having gallbladder surgery 2 days ago. Patient states this morning she got up a couple times to deal with the baby and her lower back was sore but when she started walking up the stairs all of a sudden the pain got really bad and she was unable to get up off the ground because the pain was so bad. Patient denies any numbness or weakness. Patient states any movement seems to increase the pain or particularly and on her back. Patient denies any abdominal pain. Patient denies any fall or injury. Patient denies sleeping and in place for a new position. Patient states she doesn't know numbness in the perineum. Patient denies any urinary incontinence or urinary retention. - Related Data Home Medications Medication Instructions Recorded Confirmed Famotidine 20 mg PO BID PRN 12/13/18 12/16/18 Omeprazole 20 mg PO DAILY PRN 12/13/18 12/16/18 Previous Rx's Medication Instructions Recorded Hydrocodone/Acetaminophen [[place] 1 tab PO Q6HR PRN 3 Days #12 tab 12/14/18 5-325] Cyclobenzaprine [Flexeril] 10 mg PO TID #20 tab 12/16/18 Ibuprofen [Motrin] 600 mg PO Q6HR PRN #20 tab 12/16/18 Allergies Allergy/AdvReac Type Severity Reaction Status Date / Time citalopram [From Celexa] Allergy Rash/Hives Verified 12/16/18 09:12 Review of Systems ROS Statement: Those systems with pertinent positive or pertinent negative responses have been documented in the HPI. ROS Other: All systems not noted in ROS Statement are negative. Past Medical History Past Medical History: No Reported History History of Any Multi-Drug Resistant Organisms: None Reported Past Surgical History: Section, Cholecystectomy Additional Past Surgical History / Comment(s): Mole removed left axillary, back pain Past Psychological History: No Psychological Hx Reported Smoking Status: Current every day smoker Past Alcohol Use History: Occasional Past Drug Use History: Marijuana - Past Family History Father Additional Family Medical History / Comment(s): neck fusion, lyme disease Mother Family Medical History: Diabetes Mellitus, Hypertension Additional Family Medical History / Comment(s): Arthritis General Exam - General Exam Comments Initial Comments: GENERAL: Patient is well-developed and well-nourished. Patient is nontoxic and well- hydrated and is in moderate distress. ENT: Neck is soft and supple. No significant lymphadenopathy is noted. Oropharynx is clear. Moist mucous membranes. Neck has full range of motion without eliciting any pain. EYES: The sclera were anicteric and conjunctiva were pink and moist. Extraocular movements were intact and pupils were equal round and reactive to light. Eyelids were unremarkable. PULMONARY: Unlabored respirations. Good breath sounds bilaterally. No audible rales rhonchi or wheezing was noted. CARDIOVASCULAR: There is a regular rate and rhythm without any murmurs gallops or rubs. ABDOMEN: Soft and nontender with normal bowel sounds. No palpable organomegaly was noted. There is no palpable pulsatile mass. SKIN: Skin is clear with no lesions or rashes and otherwise unremarkable. NEUROLOGIC: Patient is alert and oriented x3. Cranial nerves II through XII are grossly intact. Motor and sensory are also intact. Normal speech, volume and content. Symmetrical smile. MUSCULOSKELETAL: Normal extremities with adequate strength and full range of motion. No lower extremity swelling or edema. No calf tenderness. Patient has lower back tenderness at about L5-S1. Patient also some tenderness in the sacroiliac joint LYMPHATICS: No significant lymphadenopathy is noted PSYCHIATRIC: Normal psychiatric evaluation. Limitations: no limitations Course Vital Signs 12/16/18 08:26 Temperature 97.8 F Pulse Rate 78 Respiratory 22 Rate Blood Pressure 103/67 O2 Sat by Pulse 97 Oximetry Medical Decision Making - Medical Decision Making Patient was initially given Toradol and Valium for the pain and it did improve her symptoms she was able to get up and walk to the bathroom. Patient was able to get back in bed on her own. I reevaluated her she still stated she had significant pain psychiatric give her 1 mg of Dilaudid and she was doing much better after that. Patient did give us a urine it showed red blood cells but she then indicated she was still on her period. Patient continues to deny any abdominal pain. Patient has no numbness or weakness - Lab Data Lab Results 12/16/18 Range/Units 09:33 Urine Color Yellow Urine Appearance Clear (Clear) Urine pH 5.5 (5.0-8.0) Ur Specific [place] 1.026 (1.001-1.035) Urine Protein Negative (Negative) Urine Glucose (UA) Negative (Negative) Urine Ketones Negative (Negative) Urine Blood Moderate H (Negative) Urine Nitrite Negative (Negative) Urine Bilirubin Negative (Negative) Urine Urobilinogen <2.0 (<2.0) mg/dL Ur Leukocyte Esterase Trace H (Negative) Urine RBC 80 H (0-5) /hpf Urine WBC 1 (0-5) /hpf Ur Squamous Epith Cells 2 (0-4) /hpf Urine Mucus Rare H (None) /hpf Disposition Clinical Impression: Strain of lumbar region Disposition: HOME SELF-CARE Instructions (If sedation given, give patient instructions): Low Back Strain (ED) Prescriptions: Cyclobenzaprine [Flexeril] 10 mg PO TID #20 tab Ibuprofen [Motrin] 600 mg PO Q6HR PRN #20 tab PRN Reason: For pain Is patient prescribed a controlled substance at d/c from ED?: No Referrals: Feliz Medina DO [Primary Care Provider] - 1-2 days Time of Disposition: 10:56
[2018-12-16] MEDS ORDERED: ONDANSETRON 4 MG/2 ML VIAL IVP STA (10:00)
[2018-12-16] MEDS ORDERED: HYDROmorphone 1 MG/ML 1 ML SYRINGE IVP STA (10:00)
[2018-12-16] MEDS ORDERED: methylPREDNISolone SOD SUCCI 125 MG/2 ML VIAL IM ONE (10:34)
[2018-12-16 10:36] LABS: Appearance,Urine Clear (Clear); Bilirubin,Urine Negative (Negative); Blood,Urine Moderate (Negative); Color,Urine Yellow; Glucose,Urine (UA) Negative (Negative); Ketones,Urine Negative (Negative); Leukocyte Esterase,Urine Trace (Negative); Mucus,Urine Rare /hpf; Nitrite,Urine Negative (Negative); PH, Urine 5.5 (5.0-8.0); Protein,Urine Negative (Negative); RBC,Urine 80 /hpf (0-5); Specific Gravity,Urine 1.026 (1.001-1.035); Squamous Epithelial Cell,Urine 2 /hpf (0-4); Urobilinogen,Urine <2.0 mg/dL (<2.0)
[2018-12-16 11:26] VITALS: BP 123/84; PULSE 98; RESP 18; TEMP 98.2
== END 2018-12-16 11:25 | disposition home or self-care (01) ==
LOC: EC 08:26
DX: S39.012A Strain of muscle, fascia and tendon of lower back, initial encounter (principal); F17.200 Nicotine dependence, unspecified, uncomplicated; Z88.8 Allergy status to other drugs, medicaments and biological substances; Z98.890 Other specified postprocedural states; Z90.49 Acquired absence of other specified parts of digestive tract; Z82.61 Family history of arthritis; X58.XXXA Exposure to other specified factors, initial encounter; Y93.01 Activity, walking, marching and hiking
CPT/HCPCS: 81001; 99284; 96374; 96375 ×3; 96372; J2930; J3360; J2405; J1885; J1170

== ENCOUNTER 2018-12-22 18:23 | Emergency (ER) | payer OTHER ==
[2018-12-22] MEDS ORDERED: SODIUM CHLORIDE 0.9% 1,000 ML IV STA (18:29)
[2018-12-22] MEDS ORDERED: SODIUM CHLORIDE 0.9% 500 ML 500 ML IV STA (18:29)
[2018-12-22] MEDS ORDERED: ONDANSETRON 4 MG/2 ML VIAL IVP STA (18:30)
[2018-12-22] MEDS ORDERED: MORPHINE SULFATE 4 MG/ML SYRINGE IVP STA (18:30)
--- NOTE | 2018-12-22 18:32 | ED ---
Abdominal Pain HPI - General Chief Complaint: Abdominal Pain Stated Complaint: P/O Gallbladder pain Time Seen by Provider: 12/22/18 18:29 Source: patient Mode of arrival: ambulatory Limitations: no limitations - History of Present Illness Initial Comments: 23-year-old female with history of recent cholecystectomy on December 14, 2018 presented to the ER today for evaluation of abdominal pain in the epigastric region, nausea and vomiting. Patient states 15 minutes prior to arrival she had a loose stool, significant nausea and pain in the epigastric region, sharp and radiates to the back. Patient states that she rubbed the emergency department she began vomiting. Denies fevers. Patient states she had a follow-up appointment for surgery on December 20 in severity everything was looking good she states she has been pain-free. Patient denies any recent fever or flulike symptoms or general malaise. Patient denies positive sick contacts. Patient has a chest pain shortness of breath or leg swelling. Patient denies any other symptoms today. Upon arrival patient appears uncomfortable is actively vomiting upon history taking. - Related Data Home Medications Medication Instructions Recorded Confirmed Famotidine 20 mg PO BID PRN 12/13/18 12/16/18 Omeprazole 20 mg PO DAILY PRN 12/13/18 12/16/18 Previous Rx's Medication Instructions Recorded Hydrocodone/Acetaminophen [[place] 1 tab PO Q6HR PRN 3 Days #12 tab 12/14/18 5-325] Cyclobenzaprine [Flexeril] 10 mg PO TID #20 tab 12/16/18 Ibuprofen [Motrin] 600 mg PO Q6HR PRN #20 tab 12/16/18 Ondansetron Odt [Zofran Odt] 4 mg PO Q8HR PRN 5 Days #15 tab 12/22/18 Allergies Allergy/AdvReac Type Severity Reaction Status Date / Time citalopram [From Celexa] Allergy Rash/Hives Verified 12/22/18 18:25 Review of Systems ROS Statement: Those systems with pertinent positive or pertinent negative responses have been documented in the HPI. ROS Other: All systems not noted in ROS Statement are negative. Past Medical History Past Medical History: No Reported History History of Any Multi-Drug Resistant Organisms: None Reported Past Surgical History: Section, Cholecystectomy Additional Past Surgical History / Comment(s): Mole removed left axillary, back pain Past Psychological History: No Psychological Hx Reported Smoking Status: Current every day smoker Past Alcohol Use History: Occasional Past Drug Use History: Marijuana - Past Family History Father Additional Family Medical History / Comment(s): neck fusion, lyme disease Mother Family Medical History: Diabetes Mellitus, Hypertension Additional Family Medical History / Comment(s): Arthritis General Exam - General Exam Comments Initial Comments: General: The patient is awake and alert, patient crying and vomiting Eye: Pupils are equal, round and reactive to light, extra-ocular movements are intact. No nystagmus. There is normal conjunctiva bilaterally. No signs of icterus. Ears, nose, mouth and throat: There are moist mucous membranes and no oral lesions. Neck: The neck is supple, there is no tenderness or JVD. Cardiovascular: There is a regular rate and rhythm. No murmur, rub or gallop is appreciated. Respiratory: Lungs are clear to auscultation, respirations are non-labored, breath sounds are equal. No wheezes, stridor, rales, or rhonchi. Gastrointestinal: Soft, non-distended, mild tenderness reproduced when palpating the epigastric region of the abdomen, mainly abdomen nontender. without masses or organomegaly noted. There is no rebound or guarding present. Patient's abdominal incisions are not erythematous no drainage. Negative Huber sign. Musculoskeletal: Normal ROM, no tenderness. Strength 5/5. Sensation intact. Radial pulses equal bilaterally 2+. Neurological: A&O x 3. CN II-XII intact grossly, There are no obvious motor or sensory deficits. Coordination appears grossly intact. Speech is normal. Skin: Skin is warm and dry and no rashes or lesions are noted. Psychiatric: Cooperative, appropriate mood & affect, normal judgment. Limitations: no limitations Course Vital Signs 12/22/18 12/22/18 12/22/18 18:25 19:57 20:36 Temperature 98 F Pulse Rate 111 H 90 90 Respiratory 18 22 16 Rate Blood Pressure 148/99 145/65 127/74 O2 Sat by Pulse 96 99 100 Oximetry 12/22/18 21:40 Temperature 98.3 F Pulse Rate 74 Respiratory 16 Rate Blood Pressure 136/91 O2 Sat by Pulse 100 Oximetry - Reevaluation(s) Reevaluation #1: Upon reevaluation patient is resting comfortably, no pain, no vomiting, states she feels 100% better Medical Decision Making - Medical Decision Making 23-year-old female to recent cholecystectomy presenting for evaluation of sudden onset epigastric pain and vomiting. CT negative for acute process. No evidence of abscess. Patient does have elevated white blood cell count is not clear if this is reactive. Patient has no history of fevers or symptoms prior to today. Patient denies chest pain short of breath and appears well upon reevaluation once medication was administered. Patient is monitored in the emergency department and continues to be symptom free stating she feels 100% better. At this time given negative imaging studies patient's clinical appearance I feel she is stable for discharge and outpatient surgical follow-up. Patient is agreeable to skin for discharge at this time return parameters were discussed and she is provided outpatient prescription for Zofran. Case discussed with at tending provider Dr. Gee - Lab Data Result diagrams: 12/22/18 18:20 12/22/18 18:20 Lab Results 12/22/18 12/22/18 12/22/18 Range/Units 18:20 18:20 19:05 WBC 23.9 H (3.8-10.6) k/uL RBC 5.81 H (3.80-5.40) m/uL Hgb 15.3 D (11.4-16.0) gm/dL Hct 46.3 H (34.0-46.0) % MCV 79.7 L (80.0-100.0) fL MCH 26.3 (25.0-35.0) pg MCHC 33.0 (31.0-37.0) g/dL RDW 13.2 (11.5-15.5) % Plt Count 542 H (150-450) k/uL Neutrophils % (Manual) 53 % Lymphocytes % (Manual) 42 % Monocytes % (Manual) 5 % Neutrophils # (Manual) 12.67 H (1.3-7.7) k/uL Lymphocytes # (Manual) 10.04 H (1.0-4.8) k/uL Monocytes # (Manual) 1.20 H (0-1.0) k/uL Nucleated RBCs 0 (0-0) /100 WBC Manual Slide Review Performed Sodium 138 (137-145) mmol/L Potassium 5.2 H (3.5-5.1) mmol/L Chloride 105 (98-107) mmol/L Carbon Dioxide 22 (22-30) mmol/L Anion Gap 11 mmol/L BUN 17 (7-17) mg/dL Creatinine 0.70 (0.52-1.04) mg/dL Est GFR (CKD-EPI)AfAm >90 (>60 ml/min/1.73 sqM) Est GFR (CKD-EPI)NonAf >90 (>60 ml/min/1.73 sqM) Glucose 142 H (74-99) mg/dL Calcium 10.2 (8.4-10.2) mg/dL Total Bilirubin 0.6 (0.2-1.3) mg/dL AST 37 H (14-36) U/L ALT 31 (9-52) U/L Alkaline Phosphatase 91 (38-126) U/L Total Protein 8.2 (6.3-8.2) g/dL Albumin 4.5 (3.5-5.0) g/dL Amylase 39 (30-110) U/L Lipase 41 (23-300) U/L Urine Color Yellow Urine Appearance Cloudy H (Clear) Urine pH 5.5 (5.0-8.0) Ur Specific [place] 1.026 (1.001-1.035) Urine Protein Trace H (Negative) Urine Glucose (UA) Negative (Negative) Urine Ketones Negative (Negative) Urine Blood Negative (Negative) Urine Nitrite Negative (Negative) Urine Bilirubin Negative (Negative) Urine Urobilinogen 2.0 (<2.0) mg/dL Ur Leukocyte Esterase Small H (Negative) Urine RBC 5 (0-5) /hpf Urine WBC 7 H (0-5) /hpf Ur Squamous Epith Cells 5 H (0-4) /hpf Urine Bacteria Occasional H (None) /hpf Urine Mucus Occasional H (None) /hpf Urine HCG, Qual (Not Detectd) 12/22/18 Range/Units 19:05 WBC (3.8-10.6) k/uL RBC (3.80-5.40) m/uL Hgb (11.4-16.0) gm/dL Hct (34.0-46.0) % MCV (80.0-100.0) fL MCH (25.0-35.0) pg MCHC (31.0-37.0) g/dL RDW (11.5-15.5) % Plt Count (150-450) k/uL Neutrophils % (Manual) % Lymphocytes % (Manual) % Monocytes % (Manual) % Neutrophils # (Manual) (1.3-7.7) k/uL Lymphocytes # (Manual) (1.0-4.8) k/uL Monocytes # (Manual) (0-1.0) k/uL Nucleated RBCs (0-0) /100 WBC Manual Slide Review Sodium (137-145) mmol/L Potassium (3.5-5.1) mmol/L Chloride (98-107) mmol/L Carbon Dioxide (22-30) mmol/L Anion Gap mmol/L BUN (7-17) mg/dL Creatinine (0.52-1.04) mg/dL Est GFR (CKD-EPI)AfAm (>60 ml/min/1.73 sqM) Est GFR (CKD-EPI)NonAf (>60 ml/min/1.73 sqM) Glucose (74-99) mg/dL Calcium (8.4-10.2) mg/dL Total Bilirubin (0.2-1.3) mg/dL AST (14-36) U/L ALT (9-52) U/L Alkaline Phosphatase (38-126) U/L Total Protein (6.3-8.2) g/dL Albumin (3.5-5.0) g/dL Amylase (30-110) U/L Lipase (23-300) U/L Urine Color Urine Appearance (Clear) Urine pH (5.0-8.0) Ur Specific [place] (1.001-1.035) Urine Protein (Negative) Urine Glucose (UA) (Negative) Urine Ketones (Negative) Urine Blood (Negative) Urine Nitrite (Negative) Urine Bilirubin (Negative) Urine Urobilinogen (<2.0) mg/dL Ur Leukocyte Esterase (Negative) Urine RBC (0-5) /hpf Urine WBC (0-5) /hpf Ur Squamous Epith Cells (0-4) /hpf Urine Bacteria (None) /hpf Urine Mucus (None) /hpf Urine HCG, Qual Not Detected (Not Detectd) Disposition Clinical Impression: Vomiting, Abdominal pain, Change in stool, Nausea Disposition: HOME SELF-CARE Condition: Good Instructions (If sedation given, give patient instructions): Acute Nausea and Vomiting (ED) Additional Instructions: Please use medication as discussed. Please follow-up with family doctor in the next 2 days. Please return to emergency room if the symptoms increase or worsen or for any other concerns. Prescriptions: Ondansetron Odt [Zofran Odt] 4 mg PO Q8HR PRN 5 Days #15 tab PRN Reason: Nausea Is patient prescribed a controlled substance at d/c from ED?: No Referrals: Feliz Medina DO [Primary Care Provider] - 1-2 days Time of Disposition: 21:33
[2018-12-22] MEDS ORDERED: diphenhydrAMINE 50 MG/ML 1 ML VIAL IVP STA (18:36)
[2018-12-22 19:26] LABS: ALT 31 U/L (9-52); AST 37 U/L (14-36); African American GFR (CKD) >90 (>60 ml/min/1.73 sqM); Albumin 4.5 g/dL (3.5-5.0); Alkaline Phosphatase 91 U/L (38-126); Amylase 39 U/L (30-110); Anion Gap 11 mmol/L; Blood Urea Nitrogen 17 mg/dL (7-17); Calcium 10.2 mg/dL (8.4-10.2); Carbon Dioxide 22 mmol/L (22-30); Chloride 105 mmol/L (98-107); Glucose 142 mg/dL (74-99); Potassium 5.2 mmol/L (3.5-5.1); Sodium 138 mmol/L (137-145); Total Bilirubin 0.6 mg/dL (0.2-1.3); Total Protein 8.2 g/dL (6.3-8.2)
[2018-12-22 19:28] LABS: Appearance,Urine Cloudy (Clear); Bacteria,Urine Occasional /hpf; Bilirubin,Urine Negative (Negative); Blood,Urine Negative (Negative); Color,Urine Yellow; Glucose,Urine (UA) Negative (Negative); Ketones,Urine Negative (Negative); Leukocyte Esterase,Urine Small (Negative); Mucus,Urine Occasional /hpf; Nitrite,Urine Negative (Negative); PH, Urine 5.5 (5.0-8.0); Protein,Urine Trace (Negative); RBC,Urine 5 /hpf (0-5); Specific Gravity,Urine 1.026 (1.001-1.035); Squamous Epithelial Cell,Urine 5 /hpf (0-4); WBC,Urine 7 /hpf (0-5)
[2018-12-22] MEDS ORDERED: METOCLOPRAMIDE 5 MG/ML 2 ML VIAL IVP STA (19:30)
[2018-12-22 19:31] LABS: HCT 46.3 % (34.0-46.0); MCH 26.3 pg (25.0-35.0); MCV 79.7 fL (80.0-100.0); Mean Platelet Volume 6.1; Platelet Count 542 k/uL (150-450); RBC 5.81 m/uL (3.80-5.40); RDW 13.2 % (11.5-15.5); WBC 23.9 k/uL (3.8-10.6)
[2018-12-22] MEDS ORDERED: MORPHINE SULFATE 2 MG/ML SYRINGE IVP STA (19:31)
[2018-12-22 19:32] LABS: HGB 15.3 gm/dL (11.4-16.0)
[2018-12-22 19:59] LABS: Lymphocytes # (M) 10.04 k/uL (1.0-4.8); Neutrophils % (M) 53 %; Nucleated Red Blood Cells 0 /100 WBC (0-0); Total Cells Counted 100
--- NOTE | 2018-12-22 20:05 | CT ---
EXAMINATION TYPE: CT abdomen w con DATE OF EXAM: 12/22/2018 COMPARISON: None HISTORY: abdominal pain 1 week post op [address] CT DLP: 2496 mGycm Automated exposure control for dose reduction was used. TECHNIQUE: Helical acquisition of images was performed from the lung bases through the top of iliac crest to include entire abdomen. CONTRAST: Performed without Oral Contrast and with IV Contrast, patient injected with 100 mL of Isovue 300. FINDINGS: Lung bases are clear. There is no pleural effusion. Heart appears normal. Stomach appears normal. Samra er spleen pancreas appear normal. There are clips from cholecystectomy. There is no adrenal mass. Kidneys show satisfactory contrast opacification. There is no hydronephrosi s. Ureters are not dilated. There is no retroperitoneal adenopathy. Appendix appears normal. There is no ascites. There is no mesenteric edema. There is no sign of free air. I see no pathologic fluid co llection. Lumbar spine is intact. IMPRESSION: CHOLECYSTECTOMY. NO DILATED DUCTS. NO COMPLICATING PROCESS SEEN. NEGATIVE EXAM.
[2018-12-22 20:38] VITALS: RESP 16
--- NOTE | 2018-12-22 20:38 | XR ---
EXAMINATION TYPE: XR chest 1V portable DATE OF EXAM: 12/22/2018 COMPARISON: NONE HISTORY: Epigastric pain TECHNIQUE: Single frontal view of the chest is obtained. FINDINGS: Heart and mediastinum are normal. Lungs are clear. Diaphragm is normal. Bony thorax appear s normal. IMPRESSION: Normal chest
[2018-12-22 21:47] VITALS: BP 136/91; PULSE 74; TEMP 98.3
== END 2018-12-22 21:40 | disposition home or self-care (01) ==
LOC: EC 18:23
DX: R10.13 Epigastric pain (principal); R11.2 Nausea with vomiting, unspecified; R19.5 Other fecal abnormalities; D72.829 Elevated white blood cell count, unspecified; F17.200 Nicotine dependence, unspecified, uncomplicated; Z88.8 Allergy status to other drugs, medicaments and biological substances; Z90.49 Acquired absence of other specified parts of digestive tract
CPT/HCPCS: 36415; 80053; 82150; 83690; 85025; 81001; 81025; 71045; 74160; 99284; 96374; 96375 ×3; 96376; 96361 ×2; J2270 ×2; J1200; J2765; J2405; Q9967

== ENCOUNTER → 2019-12-16 | Outpatient (CLI) | payer OTHER | END | disposition home or self-care (01) | LOC: LABWHC1 09:16 | PROVIDERS: ATTEND Emergency Medicine | DX: Z20.828 Contact with and (suspected) exposure to other viral communicable diseases (principal) | CPT/HCPCS: U0003; C9803 ==

== ENCOUNTER 2020-03-22 11:27 | Emergency (ER) | payer BC, OTHER ==
[2020-03-22 11:36] VITALS: BP 118/75; PULSE 78; RESP 18; TEMP 98.4
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
--- NOTE | 2020-03-22 12:38 | XR ---
EXAMINATION TYPE: XR wrist complete LT, XR forearm LT DATE OF EXAM: 03/22/2020 CLINICAL HISTORY: pain TECHNIQUE: Frontal, lateral and oblique images of the left hand are obtained. COMPARISON: None. FINDINGS: There is no acute fracture/dislocation evident. The joint spaces appear within normal limi ts. The overlying soft tissue appears unremarkable. IMPRESSION: There is no acute fracture or dislocation. ICD 10 NO FRACTURE, INITIAL EVALUATION EXAMINATION TYPE: XR wrist complete LT, XR forearm LT DATE OF EXAM: 03/22/2020 CLINICAL HISTORY: pain TECHNIQUE: Frontal and lateral images of the left forearm are obtained. COMPARISON: None. FINDINGS: There is no acute fracture/dislocation evident. The joint spaces appear within normal limi ts. The overlying soft tissue appears unremarkable.
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
== END 2020-03-22 12:56 | disposition home or self-care (01) ==
LOC: EC 11:27
DX: S00.83XA Contusion of other part of head, initial encounter (principal); S06.0X9A Concussion with loss of consciousness of unspecified duration, initial encounter; S50.12XA Contusion of left forearm, initial encounter; S20.219A Contusion of unspecified front wall of thorax, initial encounter; T14.8XXA Other injury of unspecified body region, initial encounter; F17.200 Nicotine dependence, unspecified, uncomplicated; Z88.8 Allergy status to other drugs, medicaments and biological substances; Y04.8XXA Assault by other bodily force, initial encounter
CPT/HCPCS: 70450; 72125; 99284

== ENCOUNTER 2020-08-11 03:44 | Emergency (ER) | payer BC, OTHER ==
[2020-08-11 03:57] VITALS: TEMP 98.2
[2020-08-11] MEDS ORDERED: SODIUM CHLORIDE 0.9% 500 ML 500 ML IV STA (04:28)
--- NOTE | 2020-08-11 04:31 | ED ---
General Adult HPI - General Chief complaint: Urogenital Stated complaint: Abd Pain Time Seen by Provider: 08/11/20 04:09 Source: patient Mode of arrival: ambulatory Limitations: no limitations - History of Present Illness Initial comments: This patient is a 24-year-old woman who presents for evaluation of pelvic pain. She states that she had been seen for similar pains approximately 2 weeks ago at [facility]. She states she had gone there with pelvic pain and with vaginal bleeding. She states that that would've been very early to have a. She had one approximately 2 weeks prior. She had taken 3 home tests that were positive and 3 that were negative before she went to the other facility. Patient states she had a urine test done that was negative, and she was told that she needed to follow-up with her auto engine mechanic. The patient states she was subsequently scheduled to have an ultrasound which will be done at approximately 10 AM today. She does continue to have the pelvic pains. She also has been having a little bit of vaginal discharge, yellowish. Onset/Timin -: week(s) Location: pelvis Radiation: non-radiation Quality: aching Consistency: intermittent Improves with: none Worsens with: none Associated Symptoms: malaise Treatments Prior to Arrival: NSAID - Related Data Home Medications Medication Instructions Recorded Confirmed Famotidine 20 mg PO BID PRN 12/13/18 12/16/18 Omeprazole 20 mg PO DAILY PRN 12/13/18 12/16/18 Previous Rx's Medication Instructions Recorded Hydrocodone/Acetaminophen [[place] 1 tab PO Q6HR PRN 3 Days #12 tab 12/14/18 5-325] Cyclobenzaprine [Flexeril] 10 mg PO TID #20 tab 12/16/18 Ibuprofen [Motrin] 600 mg PO Q6HR PRN #20 tab 12/16/18 Ondansetron Odt [Zofran Odt] 4 mg PO Q8HR PRN 5 Days #15 tab 12/22/18 Allergies Allergy/AdvReac Type Severity Reaction Status Date / Time citalopram [From Celexa] Allergy Rash/Hives Verified 08/11/20 03:57 Review of Systems ROS Statement: Those systems with pertinent positive or pertinent negative responses have been documented in the HPI. ROS Other: All systems not noted in ROS Statement are negative. Constitutional: Denies: fever, chills Respiratory: Denies: cough, dyspnea Cardiovascular: Reports: edema. Denies: chest pain, palpitations, dyspnea on exertion, orthopnea Endocrine: Reports: fatigue Gastrointestinal: Reports: as per HPI, abdominal pain. Denies: nausea, vomiting, diarrhea, constipation Genitourinary: Reports: as per HPI, discharge, abnormal menses. Denies: dysuria, frequency, hematuria Musculoskeletal: Denies: back pain Skin: Denies: rash Neurological: Denies: headache, weakness, numbness Past Medical History Past Medical History: No Reported History History of Any Multi-Drug Resistant Organisms: None Reported Past Surgical History: Section, Cholecystectomy Additional Past Surgical History / Comment(s): Mole removed left axillary, back pain Past Psychological History: Depression Smoking Status: Current every day smoker Past Alcohol Use History: Occasional Past Drug Use History: Marijuana - Past Family History Father Additional Family Medical History / Comment(s): neck fusion, lyme disease Mother Family Medical History: Diabetes Mellitus, Hypertension Additional Family Medical History / Comment(s): Arthritis General Exam Limitations: no limitations General appearance: alert, in no apparent distress Head exam: Present: atraumatic, normocephalic Eye exam: Present: normal appearance, PERRL, EOMI. Absent: scleral icterus, conjunctival injection Respiratory exam: Present: normal lung sounds bilaterally. Absent: respiratory distress, wheezes, rales, rhonchi, stridor Cardiovascular Exam: Present: regular rate, normal rhythm, normal heart sounds. Absent: systolic murmur, diastolic murmur, rubs, gallop GI/Abdominal exam: Present: soft. Absent: distended, tenderness, guarding, rebound, rigid, mass, pulsatile mass, hernia Extremities exam: Present: normal inspection, normal capillary refill. Absent: pedal edema, calf tenderness Back exam: Present: normal inspection. Absent: CVA tenderness (R), CVA tenderness (L) Neurological exam: Present: alert Skin exam: Present: warm, dry, intact, normal color. Absent: rash Course Vital Signs 08/11/20 03:46 Temperature 98.2 F Pulse Rate 94 Respiratory 18 Rate Blood Pressure 136/90 O2 Sat by Pulse 97 Oximetry Medical Decision Making - Medical Decision Making Patient is 24-year-old woman with pelvic pain. Following workup here, patient did request to try some mild use until she can have her ultrasound done this morning. Will follow with gynecology. Declined to have additional pelvic exam here. Discussed appropriate further care and follow-up as well as return parameters. - Lab Data Result diagrams: 08/11/20 04:38 08/11/20 04:38 Lab Results 08/11/20 08/11/20 08/11/20 Range/Units 04:38 04:38 04:38 WBC 14.1 H (3.8-10.6) k/uL RBC 5.00 (3.80-5.40) m/uL Hgb 13.5 (11.4-16.0) gm/dL Hct 40.6 (34.0-46.0) % MCV 81.3 (80.0-100.0) fL MCH 27.0 (25.0-35.0) pg MCHC 33.2 (31.0-37.0) g/dL RDW 13.4 (11.5-15.5) % Plt Count 365 (150-450) k/uL MPV 7.2 Neutrophils % 70 % Lymphocytes % 21 % Monocytes % 5 % Eosinophils % 3 % Basophils % 1 % Neutrophils # 9.9 H (1.3-7.7) k/uL Lymphocytes # 2.9 (1.0-4.8) k/uL Monocytes # 0.6 (0-1.0) k/uL Eosinophils # 0.4 (0-0.7) k/uL Basophils # 0.1 (0-0.2) k/uL Sodium 143 (137-145) mmol/L Potassium 4.4 (3.5-5.1) mmol/L Chloride 109 H (98-107) mmol/L Carbon Dioxide 27 (22-30) mmol/L Anion Gap 7 mmol/L BUN 13 (7-17) mg/dL Creatinine 0.73 (0.52-1.04) mg/dL Est GFR (CKD-EPI)AfAm >90 (>60 ml/min/1.73 sqM) Est GFR (CKD-EPI)NonAf >90 (>60 ml/min/1.73 sqM) Glucose 101 H (74-99) mg/dL Calcium 9.9 (8.4-10.2) mg/dL Total Bilirubin 0.5 (0.2-1.3) mg/dL AST 36 (14-36) U/L ALT 30 (4-34) U/L Alkaline Phosphatase 69 (38-126) U/L Total Protein 6.9 (6.3-8.2) g/dL Albumin 4.2 (3.5-5.0) g/dL HCG, Quant <2.4 mIU/mL Urine Color Yellow Urine Appearance Cloudy H (Clear) Urine pH 6.0 (5.0-8.0) Ur Specific [place] 1.040 H (1.001-1.035) Urine Protein Trace H (Negative) Urine Glucose (UA) Negative (Negative) Urine Ketones 2+ H (Negative) Urine Blood Negative (Negative) Urine Nitrite Negative (Negative) Urine Bilirubin Negative (Negative) Urine Urobilinogen 2.0 (<2.0) mg/dL Ur Leukocyte Esterase Negative (Negative) Urine RBC 3 (0-5) /hpf Urine WBC 2 (0-5) /hpf Ur Squamous Epith Cells 13 H (0-4) /hpf Urine Mucus Few H (None) /hpf Blood Type Blood Type Recheck Bld Type Recheck Status 08/11/20 Range/Units 04:40 WBC (3.8-10.6) k/uL RBC (3.80-5.40) m/uL Hgb (11.4-16.0) gm/dL Hct (34.0-46.0) % MCV (80.0-100.0) fL MCH (25.0-35.0) pg MCHC (31.0-37.0) g/dL RDW (11.5-15.5) % Plt Count (150-450) k/uL MPV Neutrophils % % Lymphocytes % % Monocytes % % Eosinophils % % Basophils % % Neutrophils # (1.3-7.7) k/uL Lymphocytes # (1.0-4.8) k/uL Monocytes # (0-1.0) k/uL Eosinophils # (0-0.7) k/uL Basophils # (0-0.2) k/uL Sodium (137-145) mmol/L Potassium (3.5-5.1) mmol/L Chloride (98-107) mmol/L Carbon Dioxide (22-30) mmol/L Anion Gap mmol/L BUN (7-17) mg/dL Creatinine (0.52-1.04) mg/dL Est GFR (CKD-EPI)AfAm (>60 ml/min/1.73 sqM) Est GFR (CKD-EPI)NonAf (>60 ml/min/1.73 sqM) Glucose (74-99) mg/dL Calcium (8.4-10.2) mg/dL Total Bilirubin (0.2-1.3) mg/dL AST (14-36) U/L ALT (4-34) U/L Alkaline Phosphatase (38-126) U/L Total Protein (6.3-8.2) g/dL Albumin (3.5-5.0) g/dL HCG, Quant mIU/mL Urine Color Urine Appearance (Clear) Urine pH (5.0-8.0) Ur Specific [place] (1.001-1.035) Urine Protein (Negative) Urine Glucose (UA) (Negative) Urine Ketones (Negative) Urine Blood (Negative) Urine Nitrite (Negative) Urine Bilirubin (Negative) Urine Urobilinogen (<2.0) mg/dL Ur Leukocyte Esterase (Negative) Urine RBC (0-5) /hpf Urine WBC (0-5) /hpf Ur Squamous Epith Cells (0-4) /hpf Urine Mucus (None) /hpf Blood Type O Positive Blood Type Recheck No Previous Record Bld Type Recheck Status [facility] ONLY Disposition Clinical Impression: Pelvic pain Disposition: HOME SELF-CARE Condition: Good Instructions (If sedation given, give patient instructions): Pelvic Pain in Women (ED) Is patient prescribed a controlled substance at d/c from ED?: No Referrals: Feliz Medina DO [Primary Care Provider] - 1-2 days
[2020-08-11 04:58] LABS: Basophils # (A) 0.1 k/uL (0-0.2); Basophils % (A) 1 %; Eosinophils # (A) 0.4 k/uL (0-0.7); Eosinophils % (A) 3 %; HCT 40.6 % (34.0-46.0); HGB 13.5 gm/dL (11.4-16.0); Lymphocytes # (A) 2.9 k/uL (1.0-4.8); Lymphocytes % (A) 21 %; MCHC 33.2 g/dL (31.0-37.0); MCV 81.3 fL (80.0-100.0); Mean Platelet Volume 7.2; Monocytes # (A) 0.6 k/uL (0-1.0); Monocytes % (A) 5 %; Neutrophils # (A) 9.9 k/uL (1.3-7.7); Neutrophils % (A) 70 %; Platelet Count 365 k/uL (150-450); RDW 13.4 % (11.5-15.5); WBC 14.1 k/uL (3.8-10.6)
[2020-08-11 05:17] LABS: Appearance,Urine Cloudy (Clear); Bilirubin,Urine Negative (Negative); Blood,Urine Negative (Negative); Color,Urine Yellow; Glucose,Urine (UA) Negative (Negative); Ketones,Urine 2+ (Negative); Leukocyte Esterase,Urine Negative (Negative); Mucus,Urine Few /hpf; Nitrite,Urine Negative (Negative); Protein,Urine Trace (Negative); RBC,Urine 3 /hpf (0-5); Squamous Epithelial Cell,Urine 13 /hpf (0-4); WBC,Urine 2 /hpf (0-5)
[2020-08-11 05:26] LABS: ALT 30 U/L (4-34); AST 36 U/L (14-36); African American GFR (CKD) >90 (>60 ml/min/1.73 sqM); Albumin 4.2 g/dL (3.5-5.0); Alkaline Phosphatase 69 U/L (38-126); Anion Gap 7 mmol/L; Blood Urea Nitrogen 13 mg/dL (7-17); Calcium 9.9 mg/dL (8.4-10.2); Carbon Dioxide 27 mmol/L (22-30); Chloride 109 mmol/L (98-107); Glucose 101 mg/dL (74-99); Non-African American GFR(CKD) >90 (>60 ml/min/1.73 sqM); Potassium 4.4 mmol/L (3.5-5.1); Sodium 143 mmol/L (137-145); Total Bilirubin 0.5 mg/dL (0.2-1.3); Total Protein 6.9 g/dL (6.3-8.2)
[2020-08-11 05:43] LABS: HCG,Quantitative Serum <2.4 mIU/mL
[2020-08-11] MEDS ORDERED: ACET/COD 300 MG/30 MG STARTER PACK 6 TAB BTL PO STA (06:30)
[2020-08-11 06:43] VITALS: BP 115/72; PULSE 78; RESP 16
== END 2020-08-11 06:42 | disposition home or self-care (01) ==
LOC: EC 03:44
DX: R10.2 Pelvic and perineal pain (principal); N93.9 Abnormal uterine and vaginal bleeding, unspecified; N89.8 Other specified noninflammatory disorders of vagina; F32.9 Major depressive disorder, single episode, unspecified; F17.200 Nicotine dependence, unspecified, uncomplicated; F12.90 Cannabis use, unspecified, uncomplicated
CPT/HCPCS: 36415; 80053; 81001; 84702; 85025; 86900; 86901; 87491; 87591; 99284

== ENCOUNTER → 2020-08-11 | Outpatient (CLI) | payer BC, OTHER ==
--- NOTE | 2020-08-11 17:17 | US ---
EXAMINATION TYPE: US pelvis complete transvag DATE OF EXAM: 08/11/2020 COMPARISON: NONE CLINICAL HISTORY: R10.2 PELVIC AND PERINEAL PAIN. Irregular bleeding and generalized pain. TECHNIQUE: Transvaginal (TV) and Transabdominal (TA) . Transabdominal sonographic images of the pel vis were acquired. Transvaginal sonographic images were medically necessary to better assess the fol lowing anatomy: Endometrium, Ovaries Date of LMP: 07/25/2020, EXAM MEASUREMENTS: Uterus: 5.9 x 4.9 x 3.7 cm Endometrial Stripe: 8 mm Right Ovary: 3.5 x 2.3 x 2.2 cm Left Ovary: 3.0 x 2.3 x 1.9 cm 1. Uterus: Retroflexed No abnormality identified. 2. Endometrium: No abnormality identified. 3. Right Ovary: Follicles seen 4. Left Ovary: Follicles seen 5. Bilateral Adnexa: Free fluid seen adjacent to right ovary 6. Posterior cul-de-sac: Trace amount of fluid 7. Cervix- Trace amount of fluid seen in cervical canal IMPRESSION: 1. Bilateral ovarian follicles. Small amount of free fluid is likely physiologic within the cul-de-sa c. 2. Trace fluid within the cervix. 3. Endometrial stripe measures up to 8 mm, within normal limits for menstruating female.
== END | disposition home or self-care (01) ==
LOC: RADUSWWP 14:24
PROVIDERS: ATTEND Family Medicine
DX: N92.6 Irregular menstruation, unspecified (principal); R10.2 Pelvic and perineal pain
CPT/HCPCS: 76830; 76856

== ENCOUNTER 2021-06-03 07:00 | Emergency (ER) | payer BC, OTHER ==
[2021-06-03 07:08] VITALS: BP 133/87; PULSE 82; RESP 16; TEMP 98.2
[2021-06-03] MEDS ORDERED: KETOROLAC 15 MG/ML 1 ML VIAL IM STA (07:15)
--- NOTE | 2021-06-03 07:32 | ED ---
Upper Extremity HPI - General Chief Complaint: Extremity Injury, Upper Stated Complaint: Right finger injury Time Seen by Provider: 06/03/21 07:08 Source: patient, RN notes reviewed Mode of arrival: ambulatory Limitations: no limitations - History of Present Illness Initial Comments: This is a 25-year-old female who presents to the emergency department with a right middle finger injury. Yesterday she jammed her finger and a door, and states that this morning when she woke up, it was throbbing. She has been icing the finger and taking ibuprofen with no relief. She is able to bend the finger, and states that the majority of the pain is in the very distal aspect of the finger. Denies any bleeding from the injury. MD Complaint: Injury to:: right, finger Onset/Timin -: days(s) Context: crush Associated Symptoms: denies other symptoms Treatments Prior to Arrival: cold therapy, NSAIDS - Related Data Home Medications Medication Instructions Recorded Confirmed Famotidine 20 mg PO BID PRN 12/13/18 12/16/18 Omeprazole 20 mg PO DAILY PRN 12/13/18 12/16/18 Previous Rx's Medication Instructions Recorded Hydrocodone/Acetaminophen [[place] 1 tab PO Q6HR PRN 3 Days #12 tab 12/14/18 5-325] Cyclobenzaprine [Flexeril] 10 mg PO TID #20 tab 12/16/18 Ibuprofen [Motrin] 600 mg PO Q6HR PRN #20 tab 12/16/18 Ondansetron Odt [Zofran Odt] 4 mg PO Q8HR PRN 5 Days #15 tab 12/22/18 Allergies Allergy/AdvReac Type Severity Reaction Status Date / Time citalopram [From Celexa] Allergy Rash/Hives Verified 06/03/21 07:08 Review of Systems ROS Statement: Those systems with pertinent positive or pertinent negative responses have been documented in the HPI. ROS Other: All systems not noted in ROS Statement are negative. Constitutional: Denies: fever, chills ENT: Denies: ear pain, throat pain Respiratory: Denies: cough, dyspnea Cardiovascular: Denies: chest pain, palpitations Gastrointestinal: Denies: abdominal pain, nausea, vomiting, diarrhea Genitourinary: Denies: urgency, dysuria Musculoskeletal: Reports: other (right middle finger pain) Skin: Denies: rash Neurological: Denies: headache Past Medical History Past Medical History: No Reported History History of Any Multi-Drug Resistant Organisms: None Reported Past Surgical History: Section, Cholecystectomy Additional Past Surgical History / Comment(s): Mole removed left axillary, back pain Past Psychological History: Depression Smoking Status: Current every day smoker Past Alcohol Use History: Occasional Past Drug Use History: Marijuana - Past Family History Father Additional Family Medical History / Comment(s): neck fusion, lyme disease Mother Family Medical History: Diabetes Mellitus, Hypertension Additional Family Medical History / Comment(s): Arthritis General Exam Limitations: no limitations General appearance: alert, in no apparent distress Head exam: Present: atraumatic, normocephalic, normal inspection Respiratory exam: Present: normal lung sounds bilaterally. Absent: respiratory distress, wheezes, rales, rhonchi, stridor Cardiovascular Exam: Present: regular rate, normal rhythm, normal heart sounds. Absent: systolic murmur, diastolic murmur, rubs, gallop, clicks Extremities exam: Present: other (There is swelling and ecchymosis to the right middle finger. Full range of motion. Capillary refill less than 1 second. Tender to palpation of the DIP joint and distally.) Neurological exam: Present: alert, oriented X3, CN II-XII intact Psychiatric exam: Present: normal affect, normal mood Skin exam: Present: warm, dry, intact. Absent: rash Course Vital Signs 06/03/21 07:04 Temperature 98.2 F Pulse Rate 82 Respiratory 16 Rate Blood Pressure 133/87 O2 Sat by Pulse 99 Oximetry Medical Decision Making - Medical Decision Making This is a 25-year-old female who presents to the emergency department for an injury to the right middle finger. IM Toradol provided for pain relief. XR of the right hand obtained. This did not reveal any fractures or acute changes. She is advised to ice the finger for 15-20 minutes every 2-3 hours and alternate with ibuprofen and Tylenol. Return precautions reviewed in depth, the patient is instructed to return to the emergency department with any new, worsening, or concerning symptoms. Patient verbalized understanding. This case was discussed in detail with the attending ED physician. Presentation, findings, and treatment plan discussed in detail as well. - Radiology Data Radiology results: report reviewed, image reviewed Disposition Clinical Impression: Jammed interphalangeal joint of finger of right hand Disposition: HOME SELF-CARE Additional Instructions: Return to the emergency department with any new, worsening, or concerning symptoms. Continue to ice the finger for 15-20 minutes every 2-3 hours. Take ibuprofen or naproxen for pain and swelling, you can alternate this with Tylenol for additional relief. Follow-up with your primary care provider in 1 to 2 days. Is patient prescribed a controlled substance at d/c from ED?: No Referrals: Feliz Medina DO [Primary Care Provider] - 1-2 days
--- NOTE | 2021-06-03 07:48 | XR ---
Right hand HISTORY: Trauma and pain, swelling 3 views of the right hand Bone mineralization, joint spaces and alignment are maintained. Soft tissue swelling noted at the thi rd digit. IMPRESSION: No fracture or dislocation.
== END 2021-06-03 08:04 | disposition home or self-care (01) ==
LOC: EC 07:00
DX: S60.031A Contusion of right middle finger without damage to nail, initial encounter (principal); F32.A Depression, unspecified; F17.200 Nicotine dependence, unspecified, uncomplicated; F12.90 Cannabis use, unspecified, uncomplicated; Z79.899 Other long term (current) drug therapy; W23.0XXA Caught, crushed, jammed, or pinched between moving objects, initial encounter
CPT/HCPCS: 73130; 99283; 96372; J1885

== ENCOUNTER → 2021-12-17 | Outpatient (CLI) | payer BC, OTHER ==
--- NOTE | 2021-12-17 12:07 | XR ---
EXAMINATION TYPE: XR lumbar spine 2 or 3V DATE OF EXAM: 12/17/2021 11:49 AM INDICATION: Patient age:Female; 26 years old; Reason for study: M54.50 Low back pain; COMPARISON: None TECHNIQUE: Frontal, lateral and coned in L5-S1 lateral views of the spine. FINDINGS: No evidence of any acute osseous pathology. No evidence of loss of vertebral body height i s seen. There is normal alignment of the lumbar vertebral bodies. No significant degeneration changes throughout the spine. IMPRESSION: No acute fracture.
== END | disposition home or self-care (01) ==
LOC: RADXRMAIN 11:34
PROVIDERS: ATTEND Nurse Practitioner Family
DX: M54.50 Low back pain, unspecified (principal)
CPT/HCPCS: 72100

== ENCOUNTER → 2022-03-02 | Emergency (ER) | payer BC, OTHER ==
[~2022-03-02] MED LIST: FAMOTIDINE 20 MG/2 ML VIAL IV STA; MAG HYDROX/AL HYDROX/SIMETH 30 ML, HYOSCYAMINE ELIXIR 10 ML, LIDOCAINE VISCOUS 2% 10 ML PO STA; METOCLOPRAMIDE 5 MG/ML 2 ML VIAL IVP STA; SODIUM CHLORIDE 0.9% 1,000 ML IV STA
[2022-03-02 19:55] VITALS: BP 133/75; PULSE 86; RESP 18; TEMP 97.3
[2022-03-02 20:42] LABS: Amorphous Sediment,Urine Rare /hpf; Appearance,Urine Cloudy (Clear); Bacteria,Urine Occasional /hpf; Bilirubin,Urine Negative (Negative); Blood,Urine Negative (Negative); Color,Urine Yellow; Glucose,Urine (UA) Negative (Negative); Ketones,Urine Trace (Negative); Leukocyte Esterase,Urine Negative (Negative); Mucus,Urine Moderate /hpf; Nitrite,Urine Negative (Negative); Protein,Urine Trace (Negative); RBC,Urine <1 /hpf (0-5); Specific Gravity,Urine 1.037 (1.001-1.035); Squamous Epithelial Cell,Urine 5 /hpf (0-4); WBC,Urine 8 /hpf (0-5)
[2022-03-02 20:51] LABS: Basophils # (A) 0.1 k/uL (0-0.2); Basophils % (A) 1 %; Eosinophils # (A) 0.3 k/uL (0-0.7); Eosinophils % (A) 3 %; HCT 45.3 % (34.0-46.0); HGB 14.8 gm/dL (11.4-16.0); Lymphocytes # (A) 2.8 k/uL (1.0-4.8); Lymphocytes % (A) 26 %; MCH 26.9 pg (25.0-35.0); MCHC 32.8 g/dL (31.0-37.0); Mean Platelet Volume 7.2; Monocytes # (A) 0.5 k/uL (0-1.0); Monocytes % (A) 5 %; Neutrophils % (A) 64 %; Platelet Count 333 k/uL (150-450); RBC 5.52 m/uL (3.80-5.40); RDW 13.2 % (11.5-15.5); WBC 10.9 k/uL (3.8-10.6)
--- NOTE | 2022-03-02 21:04 | XR ---
EXAMINATION TYPE: XR KUB DATE OF EXAM: 03/02/2022 COMPARISON: NONE HISTORY: Abdominal pain TECHNIQUE: Upright view of the abdomen was obtained with 2 radiographs. FINDINGS: Small bowel demonstrates no evidence for dilatation or air fluid levels. Gas and fecal material is seen in non-distended colon. No convincing evidence for pneumoperitoneum. No unusual calcifications. Cholecystectomy clips right upper quadrant. The lung bases are clear. The osseous structures are intact. IMPRESSION: Overall nonobstructive bowel gas pattern.
[2022-03-02 21:17] LABS: ALT 31 U/L (4-34); AST 32 U/L (14-36); African American GFR (CKD) >90 (>60 ml/min/1.73 sqM); Albumin 4.4 g/dL (3.5-5.0); Alkaline Phosphatase 62 U/L (38-126); Amylase 37 U/L (30-110); Anion Gap 10 mmol/L; Blood Urea Nitrogen 13 mg/dL (7-17); Calcium 9.2 mg/dL (8.4-10.2); Carbon Dioxide 22 mmol/L (22-30); Chloride 106 mmol/L (98-107); Glucose 91 mg/dL (74-99); Lipase 24 U/L (23-300); Non-African American GFR(CKD) >90 (>60 ml/min/1.73 sqM); Potassium 4.3 mmol/L (3.5-5.1); Sodium 138 mmol/L (137-145); Total Bilirubin 0.7 mg/dL (0.2-1.3); Total Protein 7.4 g/dL (6.3-8.2)
--- NOTE | 2022-03-02 21:52 | ED ---
Abdominal Pain HPI - General Chief Complaint: Abdominal Pain Stated Complaint: abd pain, light headed Time Seen by Provider: 03/02/22 19:58 Source: patient Mode of arrival: ambulatory Limitations: no limitations - History of Present Illness Initial Comments: Patient is a 26-year-old female presenting with chief complaint of epigastric pain. She admits to nausea without vomiting as well as headache. This is day 3 of symptoms. Patient states she initially had diarrhea on days one and 2 but that has since improved. Patient suspected she had food poisoning, however she is concerned due to the length of symptoms. She has history of cholecystectomy and C-sections. No chest pain or difficulty breathing. No palpitations, fever, chills. No hematochezia, melena, dysuria, hematuria, back pain. - Related Data Home Medications Medication Instructions Recorded Confirmed Famotidine 20 mg PO BID PRN 12/13/18 12/16/18 Omeprazole 20 mg PO DAILY PRN 12/13/18 12/16/18 Previous Rx's Medication Instructions Recorded Hydrocodone/Acetaminophen [[place] 1 tab PO Q6HR PRN 3 Days #12 tab 12/14/18 5-325] Cyclobenzaprine [Flexeril] 10 mg PO TID #20 tab 12/16/18 Ibuprofen [Motrin] 600 mg PO Q6HR PRN #20 tab 12/16/18 Ondansetron Odt [Zofran Odt] 4 mg PO Q8HR PRN 5 Days #15 tab 12/22/18 Pantoprazole [Protonix] 40 mg PO DAILY #20 tab 03/02/22 Sucralfate [Carafate] 1 gm PO ACHS #20 tablet 03/02/22 Allergies Allergy/AdvReac Type Severity Reaction Status Date / Time citalopram [From Celexa] Allergy Rash/Hives Verified 03/02/22 19:55 Review of Systems ROS Statement: Those systems with pertinent positive or pertinent negative responses have been documented in the HPI. ROS Other: All systems not noted in ROS Statement are negative. Past Medical History Past Medical History: No Reported History History of Any Multi-Drug Resistant Organisms: None Reported Past Surgical History: Section, Cholecystectomy Additional Past Surgical History / Comment(s): Mole removed left axillary, back pain Past Psychological History: Depression Smoking Status: Current every day smoker Past Alcohol Use History: Occasional Past Drug Use History: Marijuana - Past Family History Father Additional Family Medical History / Comment(s): neck fusion, lyme disease Mother Family Medical History: Diabetes Mellitus, Hypertension Additional Family Medical History / Comment(s): Arthritis General Exam Limitations: no limitations General appearance: alert, in no apparent distress Head exam: Present: atraumatic, normocephalic, normal inspection Eye exam: Present: normal appearance Neck exam: Present: normal inspection, full ROM Respiratory exam: Present: normal lung sounds bilaterally. Absent: respiratory distress, wheezes, rales, rhonchi, stridor Cardiovascular Exam: Present: regular rate, normal rhythm, normal heart sounds. Absent: systolic murmur, diastolic murmur, rubs, gallop, clicks GI/Abdominal exam: Present: soft. Absent: distended, tenderness, guarding, rebound, rigid Neurological exam: Present: alert, oriented X3, CN II-XII intact Psychiatric exam: Present: normal affect, normal mood Skin exam: Present: warm, dry, intact, normal color. Absent: rash Course Vital Signs 03/02/22 19:52 Temperature 97.3 F L Pulse Rate 86 Respiratory 18 Rate Blood Pressure 133/75 O2 Sat by Pulse 98 Oximetry Medical Decision Making - Medical Decision Making Was pt. sent in by a medical professional or institution (, PA, PACKING ATTENDANT, urgent care, hospital, or [place] health care facility...) When possible be specific @ -No Did you speak to anyone other than the patient for history (EMS, parent, family, police, friend...)? What history was obtained from this source @ -No Did you review nursing and triage notes (agree or disagree)? Why? @ -I reviewed and agree with nursing and triage notes Were old charts reviewed (outside hosp., previous admission, EMS record, old EKG, old radiological studies, urgent care reports/EKG's, [place] health care facility records)? Report findings @ -No old charts were reviewed Differential Diagnosis (chest pain, altered mental status, abdominal pain women, abdominal pain men, vaginal bleeding, weakness, fever, dyspnea, syncope, headache, dizziness, GI bleed, back pain, seizure, CVA, palpatations, mental health)? @ -MDM Differential Abdominal Pain Women: pancreatitis, hepatitis, gastroenteritis, bowel obstruction, constipation, infl ammatory bowel, peptic ulcer disease... This is not meant to be an all-inclusive list EKG interpreted by me (3pts min.). @ -As above X-rays interpreted by me (1pt min.). @ -KUB x-ray shows nonacute abdomen CT interpreted by me (1pt min.). @ -None done U/S interpreted by me (1pt. min.). @ -None done What testing was considered but not performed or refused? (CT, X-rays, U/S, labs)? Why? @ -None What meds were considered but not given or refused? Why? @ -None Did you discuss the management of the patient with other professionals (professionals i.e. Dr., PA, PACKING ATTENDANT, lab, RT, psych nurse, social scientist, manganese heater, teacher, truant officer, caseworker protective services)? Give summary @ -No Was smoking cessation discussed for >3mins.? @ -No Was critical care preformed (if so, how long)? @ -No Were there social determinants of health that impacted care today? How? (Homelessness, low income, unemployed, alcoholism, drug addiction, transportation, low edu. Level, literacy, decrease access to med. care, half-way, rehab)? @ -No Was there de-escalation of care discussed even if they declined (Discuss DNR or withdrawal of care, Hospice)? DNR status @ -No What co-morbidities impacted this encounter? (DM, HTN, Smoking, COPD, CAD, Cancer, CVA, ARF, Chemo, Hep., AIDS, mental health diagnosis, sleep apnea, morbid obesity)? @ -None Was patient admitted / discharged? Hospital course, mention meds given and route, prescriptions, significant lab abnormalities, going to OR and other pertinent info. @ -Patient is a 26-year-old female history of cholecystectomy presenting with chief complaint of epigastric pain. She admits to nausea with no vomiting. Physical examination is unremarkable. Lab work shows WBC 10.9. Urine shows si gns of contamination, will be sent for culture. HCG is negative. Remainder of lab work is unremarkable. KUB x-ray shows nonacute abdomen. Patient was given Pepcid and GI cocktail as well as IV fluids, on reassessment she reports improvement of her symptoms. Symptoms likely due to gastritis. Educated patient on these findings and treatment. Patient is sent a prescription for Protonix and Carafate. Instructed to follow-up with her PCP. Follow-up with PCP. Report back to ER with any new or worsening symptoms. Discussed return parameters and answered all questions. Patient conveyed verbal understanding and agreed to the plan. I discussed this case in detail with my attending Dr. Bernard Undiagnosed new problem with uncertain prognosis? @ -No Drug Therapy requiring intensive monitoring for toxicity (Heparin, Nitro, Insulin, Cardizem)? @ -No Were any procedures done? @ -No Diagnosis/symptom? @ -Gastritis Acute, or Chronic, or Acute on Chronic? @ -Acute Uncomplicated (without systemic symptoms) or Complicated (systemic symptoms)? @ -Uncomplicated Side effects of treatment? @ -No Exacerbation, Progression, or Severe Exacerbation? @ -No Poses a threat to life or bodily function? How? (Chest pain, [place], [place], pneumonia, PE, COPD, DKA, ARF, appy, cholecystitis, CVA, Diverticulitis, Homicidal, Suicidal, threat to staff... and all critical care pts) @ -Unlikely - Lab Data Result diagrams: 03/02/22 20:27 03/02/22 20:27 Lab Results 03/02/22 03/02/22 03/02/22 Range/Units 20:27 20:27 20:27 WBC 10.9 H (3.8-10.6) k/uL RBC 5.52 H (3.80-5.40) m/uL Hgb 14.8 (11.4-16.0) gm/dL Hct 45.3 (34.0-46.0) % MCV 82.0 (80.0-100.0) fL MCH 26.9 (25.0-35.0) pg MCHC 32.8 (31.0-37.0) g/dL RDW 13.2 (11.5-15.5) % Plt Count 333 (150-450) k/uL MPV 7.2 Neutrophils % 64 % Lymphocytes % 26 % Monocytes % 5 % Eosinophils % 3 % Basophils % 1 % Neutrophils # 7.0 (1.3-7.7) k/uL Lymphocytes # 2.8 (1.0-4.8) k/uL Monocytes # 0.5 (0-1.0) k/uL Eosinophils # 0.3 (0-0.7) k/uL Basophils # 0.1 (0-0.2) k/uL Sodium 138 (137-145) mmol/L Potassium 4.3 (3.5-5.1) mmol/L Chloride 106 (98-107) mmol/L Carbon Dioxide 22 (22-30) mmol/L Anion Gap 10 mmol/L BUN 13 (7-17) mg/dL Creatinine 0.66 (0.52-1.04) mg/dL Est GFR (CKD-EPI)AfAm >90 (>60 ml/min/1.73 sqM) Est GFR (CKD-EPI)NonAf >90 (>60 ml/min/1.73 sqM) Glucose 91 (74-99) mg/dL Plasma Lactic Acid Bent[place] 1.0 (0.7-2.0) mmol/L Calcium 9.2 (8.4-10.2) mg/dL Total Bilirubin 0.7 (0.2-1.3) mg/dL AST 32 (14-36) U/L ALT 31 (4-34) U/L Alkaline Phosphatase 62 (38-126) U/L Total Protein 7.4 (6.3-8.2) g/dL Albumin 4.4 (3.5-5.0) g/dL Amylase 37 (30-110) U/L Lipase 24 (23-300) U/L Urine Color Urine Appearance (Clear) Urine pH (5.0-8.0) Ur Specific [place] (1.001-1.035) Urine Protein (Negative) Urine Glucose (UA) (Negative) Urine Ketones (Negative) Urine Blood (Negative) Urine Nitrite (Negative) Urine Bilirubin (Negative) Urine Urobilinogen (<2.0) mg/dL Ur Leukocyte Esterase (Negative) Urine RBC (0-5) /hpf Urine WBC (0-5) /hpf Ur Squamous Epith Cells (0-4) /hpf Amorphous Sediment (None) /hpf Urine Bacteria (None) /hpf Urine Mucus (None) /hpf Urine HCG, Qual (Not Detectd) 03/02/22 03/02/22 Range/Units 20:32 20:32 WBC (3.8-10.6) k/uL RBC (3.80-5.40) m/uL Hgb (11.4-16.0) gm/dL Hct (34.0-46.0) % MCV (80.0-100.0) fL MCH (25.0-35.0) pg MCHC (31.0-37.0) g/dL RDW (11.5-15.5) % Plt Count (150-450) k/uL MPV Neutrophils % % Lymphocytes % % Monocytes % % Eosinophils % % Basophils % % Neutrophils # (1.3-7.7) k/uL Lymphocytes # (1.0-4.8) k/uL Monocytes # (0-1.0) k/uL Eosinophils # (0-0.7) k/uL Basophils # (0-0.2) k/uL Sodium (137-145) mmol/L Potassium (3.5-5.1) mmol/L Chloride (98-107) mmol/L Carbon Dioxide (22-30) mmol/L Anion Gap mmol/L BUN (7-17) mg/dL Creatinine (0.52-1.04) mg/dL Est GFR (CKD-EPI)AfAm (>60 ml/min/1.73 sqM) Est GFR (CKD-EPI)NonAf (>60 ml/min/1.73 sqM) Glucose (74-99) mg/dL Plasma Lactic Acid [place] (0.7-2.0) mmol/L Calcium (8.4-10.2) mg/dL Total Bilirubin (0.2-1.3) mg/dL AST (14-36) U/L ALT (4-34) U/L Alkaline Phosphatase (38-126) U/L Total Protein (6.3-8.2) g/dL Albumin (3.5-5.0) g/dL Amylase (30-110) U/L Lipase (23-300) U/L Urine Color Yellow Urine Appearance Cloudy H (Clear) Urine pH 5.0 (5.0-8.0) Ur Specific [place] 1.037 H (1.001-1.035) Urine Protein Trace H (Negative) Urine Glucose (UA) Negative (Negative) Urine Ketones Trace H (Negative) Urine Blood Negative (Negative) Urine Nitrite Negative (Negative) Urine Bilirubin Negative (Negative) Urine Urobilinogen 2.0 (<2.0) mg/dL Ur Leukocyte Esterase Negative (Negative) Urine RBC <1 (0-5) /hpf Urine WBC 8 H (0-5) /hpf Ur Squamous Epith Cells 5 H (0-4) /hpf Amorphous Sediment Rare H (None) /hpf Urine Bacteria Occasional H (None) /hpf Urine Mucus Moderate H (None) /hpf Urine HCG, Qual Not Detected (Not Detectd) Disposition Clinical Impression: Gastritis Disposition: HOME SELF-CARE Condition: Good Instructions (If sedation given, give patient instructions): Gastritis (ED), Diet for Stomach Ulcers and Gastritis (ED) Additional Instructions: Follow-up with PCP. Report back to ER with any new or worsening symptoms. Take medication as prescribed. Prescriptions: Sucralfate [Carafate] 1 gm PO ACHS #20 tablet Pantoprazole [Protonix] 40 mg PO DAILY #20 tab Is patient prescribed a controlled substance at d/c from ED?: No Referrals: Feliz Medina DO [Primary Care Provider] - 1-2 days Time of Disposition: 21:51
== END | disposition home or self-care (01) ==
LOC: EC 19:51
DX: K29.70 Gastritis, unspecified, without bleeding (principal); F32.A Depression, unspecified; F17.200 Nicotine dependence, unspecified, uncomplicated; F12.90 Cannabis use, unspecified, uncomplicated; Z88.8 Allergy status to other drugs, medicaments and biological substances
CPT/HCPCS: 36415; 80053; 82150; 83605; 83690; 85025; 81001; 81025; 74018; 99284; 96374; 96375; 96361; J2765

== ENCOUNTER → 2023-08-11 | Day surgery (SDC) | payer BC, OTHER ==
[2023-08-09 09:15] VITALS: BMI 45.4
[~2023-08-11] MED LIST changes: -FAMOTIDINE 20 MG/2 ML VIAL IV STA; +LACTATED RINGERS 1,000 ML IV SCH; -MAG HYDROX/AL HYDROX/SIMETH 30 ML, HYOSCYAMINE ELIXIR 10 ML, LIDOCAINE VISCOUS 2% 10 ML PO STA; -METOCLOPRAMIDE 5 MG/ML 2 ML VIAL IVP STA; +PROPOFOL 10 MG/ML 20 ML VIAL IV ONE; -SODIUM CHLORIDE 0.9% 1,000 ML IV STA
[2023-08-11] MEDS: IV FLUID CONTINUATION 1,000 ML IV ONE ×2 (12:34→13:47)
[2023-08-11 12:57] VITALS: TEMP 97.8
--- NOTE | 2023-08-11 14:01 | P.PCN ---
Date of Procedure: 08/11/23 Procedure(s) Performed: BRIEF HISTORY: Patient is a 27-year-old, pleasant, white female scheduled for an upper endoscopy as a part of evaluation of chronic epigastric pain for the last 5 years duration. She has a fibroid and has been on Protonix 40 mg daily with some improvement in his symptoms.. PROCEDURE PERFORMED: Esophagogastroduodenoscopy with biopsy. PREOPERATIVE DIAGNOSIS: Chronic epigastric pain/GERD 5 years duration. IV sedation per anesthesia. PROCEDURE: After informed consent was obtained, the patient was brought into the endoscopy unit. IV sedation was administered by Anesthesia under continuous monitoring. Initially the Olympus GIF-140 video endoscope was inserted into the mouth. Esophagus intubated without any difficulty. It was gradually advanced into the stomach and duodenum and carefully examined. The bulb and the second part of the duodenum appeared normal. Biopsies were done from duodenum to evaluate for celiac disease. The scope at this time was withdrawn to the stomach, adequately insufflated with air, and upon careful examination, mucosa of the antrum, had mild gastritis and biopsies were done from this area. Mucosa of the body, cardia and the fundus appeared normal. The scope was then withdrawn into the esophagus. The GE junction was located at 39 cm from the incisors. The esophagus appeared normal. There were no erosions or ulcerations seen, biopsies were done from the distal esophagus and the patient tolerated the procedure well. IMPRESSION: 1. Mild antral gastritis. 2. Normal-appearing esophagus with no evidence of esophagitis or Dillon's esophagus. RECOMMENDATIONS: The findings of this examination were discussed with the patient as well as her family.Advised to follow-up with the biopsy results. Recommended to increase her Protonix to 40 mg twice daily and follow antireflux measures..
[2023-08-11 14:44] VITALS: BP 107/61; PULSE 77; RESP 20
== END ==
LOC: ORWHC2ENDO 12:12
PROVIDERS: ATTEND Internal Medicine Gastroenterology
DX: K29.50 Unspecified chronic gastritis without bleeding (principal); K21.00 Gastro-esophageal reflux disease with esophagitis, without bleeding; G89.29 Other chronic pain; Z79.899 Other long term (current) drug therapy
CPT/HCPCS: 81025; 88305; 43239; J2704

== ENCOUNTER 2023-08-24 15:48 | Emergency (ER) | payer BC, OTHER ==
[2023-08-24 17:34] LABS: ALT 26 U/L (4-34); African American GFR (CKD) >90 (>60 ml/min/1.73 sqM); Amylase 40 U/L (30-110); Anion Gap 5 mmol/L; Blood Urea Nitrogen 12 mg/dL (7-17); Calcium 9.2 mg/dL (8.4-10.2); Carbon Dioxide 24 mmol/L (22-30); Chloride 110 mmol/L (98-107); Lipase 23 U/L (23-300); Non-African American GFR(CKD) >90 (>60 ml/min/1.73 sqM); Sodium 139 mmol/L (137-145)
[2023-08-24 17:39] LABS: Albumin 4.3 g/dL (3.5-5.0); Glucose 91 mg/dL (74-99); Potassium 4.8 mmol/L (3.5-5.1)
[2023-08-24 17:40] LABS: AST 60 U/L (14-36); Alkaline Phosphatase 47 U/L (38-126); Total Protein 7.5 g/dL (6.3-8.2)
[2023-08-24 18:35] LABS: Appearance,Urine Cloudy (Clear); Bilirubin,Urine Negative (Negative); Blood,Urine Large (Negative); Color,Urine Red; Glucose,Urine (UA) Negative (Negative); Ketones,Urine Trace (Negative); Leukocyte Esterase,Urine Moderate (Negative); Mucus,Urine Rare /hpf; Nitrite,Urine Negative (Negative); PH, Urine 5.5 (5.0-8.0); Protein,Urine 1+ (Negative); RBC,Urine >182 /hpf (0-5); Squamous Epithelial Cell,Urine 1 /hpf (0-4); WBC,Urine 60 /hpf (0-5)
[2023-08-24 18:49] LABS: Basophils # (A) 0.1 k/uL (0-0.2); Basophils % (A) 1 %; Eosinophils # (A) 0.4 k/uL (0-0.7); Eosinophils % (A) 3 %; HCT 37.6 % (34.0-46.0); HGB 12.1 gm/dL (11.4-16.0); Lymphocytes # (A) 3.3 k/uL (1.0-4.8); Lymphocytes % (A) 26 %; MCH 25.4 pg (25.0-35.0); MCHC 32.2 g/dL (31.0-37.0); MCV 78.9 fL (80.0-100.0); Mean Platelet Volume 7.2; Monocytes # (A) 0.8 k/uL (0-1.0); Monocytes % (A) 6 %; Neutrophils # (A) 8.2 k/uL (1.3-7.7); Neutrophils % (A) 63 %; Platelet Count 356 k/uL (150-450); RBC 4.77 m/uL (3.80-5.40); RDW 14.1 % (11.5-15.5)
[2023-08-24 18:56] VITALS: RESP 18; TEMP 97.9
--- NOTE | 2023-08-24 19:06 | CT ---
EXAMINATION TYPE: CT abdomen pelvis wo con CT DLP: 1764.4 mGycm, Automated exposure control for dose reduction was used. DATE OF EXAM: 08/24/2023 6:49 PM COMPARISON: 04/13/2022 CLINICAL INDICATION:Female, 27 years old with history of abdominal pain, RLQ; RLQ abdominal pain. TECHNIQUE: Axial CT abdomen pelvis wo con;Sagittal and coronal reformats were created on a separate workstation. Contrast used: mL of , (none if empty) Oral contrast used: without Oral Contrast (none if empty) FINDINGS: LOWER CHEST: Unremarkable ABDOMEN LIVER: Diffusely hypoattenuating parenchyma. GALLBLADDER AND BILE DUCTS: The gallbladder is surgically absent. PANCREAS: Unremarkable. SPLEEN: Unremarkable. ADRENAL GLANDS: Unremarkable. KIDNEYS AND URETERS: Nonobstructive 2 mm left contrast. No obstructing calculi. PELVIS BLADDER: Unremarkable REPRODUCTIVE: Unremarkable. ABDOMEN & PELVIS STOMACH AND BOWEL: No evidence of bowel obstruction. Appendix is normal. PERITONEUM/RETROPERITONEUM: No evidence of pneumoperitoneum or free fluid. VASCULATURE: No evidence of aortic aneurysm. MUSCULOSKELETAL: No acute osseous abnormalities. Mild disc degeneration changes are present throughou t the thoracolumbar spine. LYMPH NODES: No gross evidence for lymphadenopathy. SOFT TISSUE/ABDOMINAL WALL: Unremarkable IMPRESSION: 1. The appendix is normal. No right obstructive uropathy. 2. Nonobstructive left renal calculus. 3. Fat-containing umbilical hernia. 4. Hepatic steatosis.
--- NOTE | 2023-08-24 19:20 | ED ---
Abdominal Pain HPI - General Chief Complaint: Abdominal Pain Stated Complaint: abd abcess, bruise Time Seen by Provider: 08/24/23 16:15 Source: patient Mode of arrival: ambulatory Limitations: no limitations - History of Present Illness Initial Comments: This patient is a 27-year-old woman who presents for evaluation of right lower quadrant pain. The patient had gone to an urgent care where she was seen and told that she needed to go to the emergency department probably to have a CAT scan. Patient states she was told there was concern about blood pooling in the abdomen. She states she does have a full feeling in the right lower abdomen. Patient has not had fever or chills. No change in bowel movement or urination. MD Complaint: abdominal pain -: days(s) Location: RLQ Radiation: none Migration to: no migration Severity: moderate Quality: aching, fullness, sharp Consistency: constant Improves With: nothing Worsens With: nothing Associated Symptoms: denies other symptoms - Related Data Previous Rx's Medication Instructions Recorded Pantoprazole [Protonix] 40 mg PO DAILY #20 tab 03/02/22 Sulfamethox-Tmp 800-160Mg [Bactrim 1 each PO Q12HR #6 tab 08/24/23 Ds] Allergies Allergy/AdvReac Type Severity Reaction Status Date / Time citalopram [From Celexa] Allergy Rash/Hives Verified 08/24/23 15:49 Review of Systems ROS Statement: Those systems with pertinent positive or pertinent negative responses have been documented in the HPI. ROS Other: All systems not noted in ROS Statement are negative. Constitutional: Denies: fever, chills Respiratory: Denies: cough, dyspnea Cardiovascular: Denies: chest pain, palpitations Gastrointestinal: Reports: abdominal pain. Denies: nausea, vomiting, diarrhea, constipation Genitourinary: Denies: dysuria, hematuria Musculoskeletal: Denies: back pain Skin: Denies: rash Neurological: Denies: headache, weakness, numbness Past Medical History Past Medical History: No Reported History, GERD/Reflux History of Any Multi-Drug Resistant Organisms: None Reported Past Surgical History: Section, Cholecystectomy Additional Past Surgical History / Comment(s): Mole removed left axillary, back pain Past Anesthesia/Blood Transfusion Reactions: No Reported Reaction Additional Past Anesthesia/Blood Transfusion Reaction / Comment(s): no blood transfusion reaction Past Psychological History: Depression Smoking Status: Current every day smoker, Vaper - Past Family History Father Additional Family Medical History / Comment(s): neck fusion, lyme disease Mother Family Medical History: Diabetes Mellitus, Hypertension Additional Family Medical History / Comment(s): Arthritis General Exam Limitations: no limitations General appearance: alert, in no apparent distress Head exam: Present: atraumatic, normocephalic Eye exam: Present: normal appearance. Absent: scleral icterus, conjunctival injection Neck exam: Present: normal inspection Respiratory exam: Present: normal lung sounds bilaterally. Absent: respiratory distress, wheezes, rales, rhonchi, stridor, accessory muscle use Cardiovascular Exam: Present: regular rate, normal rhythm, normal heart sounds. Absent: systolic murmur, diastolic murmur, rubs, gallop GI/Abdominal exam: Present: soft, tenderness. Absent: distended, guarding, rebound, rigid, mass Extremities exam: Present: normal inspection, normal capillary refill. Absent: pedal edema, calf tenderness Back exam: Present: normal inspection. Absent: CVA tenderness (R), CVA tenderness (L) Neurological exam: Present: alert Skin exam: Present: warm, dry, intact, normal color. Absent: rash Course Vital Signs 08/24/23 08/24/23 08/24/23 15:49 18:54 19:31 Temperature 97.6 F 97.9 F Pulse Rate 88 63 78 Respiratory 16 18 18 Rate Blood Pressure 135/87 110/51 136/103 O2 Sat by Pulse 99 97 98 Oximetry Medical Decision Making - Medical Decision Making The patient had CT scan of the abdomen and pelvis which does show fat-containing umbilical hernia. No acute surgical condition. The patient did have improvement with medication here. Given the hernia we will have the patient follow-up with surgery to discuss repair. Discussed appropriate return parameters Was pt. sent in by a medical professional or institution (, PA, FLYER REPAIRER, urgent care, hospital, or care home...) When possible be specific @ -[No] Did you speak to anyone other than the patient for history (EMS, parent, family, police, friend...)? What history was obtained from this source @ -[No] Did you review nursing and triage notes (agree or disagree)? Why? @ -[I reviewed and agree with nursing and triage notes] Were old charts reviewed (outside hosp., previous admission, EMS record, old EKG, old radiological studies, urgent care reports/EKG's, care home records)? Report findings @ -[No old charts were reviewed] Differential Diagnosis (chest pain, altered mental status, abdominal pain women, abdominal pain men, vaginal bleeding, weakness, fever, dyspnea, syncope, headache, dizziness, GI bleed, back pain, seizure, CVA, palpatations, mental health, musculoskeletal)? @ -Differential Abdominal Pain Women: Appendicitis, Cholecystitis, diverticulosis, ischemic bowel, pancreatitis, hepatitis, UTI, gastroenteritis, AAA, incarcerated hernia, bowel obstruction, constipation, inflammatory bowel, hepatitis, peptic ulcer disease, splenic infarction, perforated viscus, vulvitis, ovarian torsion, PID, kidney stone, placenta abruption, this is not meant to be an all-inclusive list EKG interpreted by me (3pts min.). @ -[As above] X-rays interpreted by me (1pt min.). @ -[None done] CT interpreted by me (1pt min.). @ -[I interpreted as above U/S interpreted by me (1pt. min.). @ -[None done] What testing was considered but not performed or refused? (CT, X-rays, U/S, labs)? Why? @ -[None] What meds were considered but not given or refused? Why? @ -[None] Did you discuss the management of the patient with other professionals (professionals i.e. , PA, FLYER REPAIRER, lab, RT, psych nurse, social work case manager, chopper feeder, teacher, corporate officer, case management social worker)? Give summary @ -[No] Was smoking cessation discussed for >3mins.? @ -[No] Was critical care preformed (if so, how long)? @ -[No] Were there social determinants of health that impacted care today? How? (Homelessness, low income, unemployed, alcoholism, drug addiction, transportation, low edu. Level, literacy, decrease access to med. care, alf, rehab)? @ -[No] Was there de-escalation of care discussed even if they declined (Discuss DNR or withdrawal of care, Hospice)? DNR status @ -[No] What co-morbidities impacted this encounter? (DM, HTN, Smoking, COPD, CAD, Cancer, CVA, ARF, Chemo, Hep., AIDS, mental health diagnosis, sleep apnea, morbid obesity)? @ -[None] Was patient admitted / discharged? Hospital course, mention meds given and route, prescriptions, significant lab abnormalities, going to OR and other pertinent info. @ -[See above Undiagnosed new problem with uncertain prognosis? @ -[No] Drug Therapy requiring intensive monitoring for toxicity (Heparin, Nitro, Insulin, Cardizem)? @ -[No] Were any procedures done? @ -[No] Diagnosis/symptom? @ -[Acute abdominal pain Umbilical hernia Acute, or Chronic, or Acute on Chronic? @ -[Acute Uncomplicated (without systemic symptoms) or Complicated (systemic symptoms)? @ -[Uncomplicated Side effects of treatment? @ -[No] Exacerbation, Progression, or Severe Exacerbation? @ -[No] Poses a threat to life or bodily function? How? (Chest pain, USA, DC, pneumonia, PE, COPD, DKA, ARF, appy, cholecystitis, CVA, Diverticulitis, Homicidal, Suicidal, threat to staff... and all critical care pts) @ -[No] - Lab Data Result diagrams: 08/24/23 18:44 08/24/23 17:14 Lab Results 08/24/23 08/24/23 08/24/23 Range/Units 17:14 17:14 18:27 WBC (3.8-10.6) k/uL RBC (3.80-5.40) m/uL Hgb (11.4-16.0) gm/dL Hct (34.0-46.0) % MCV (80.0-100.0) fL MCH (25.0-35.0) pg MCHC (31.0-37.0) g/dL RDW (11.5-15.5) % Plt Count (150-450) k/uL MPV Neutrophils % % Lymphocytes % % Monocytes % % Eosinophils % % Basophils % % Neutrophils # (1.3-7.7) k/uL Lymphocytes # (1.0-4.8) k/uL Monocytes # (0-1.0) k/uL Eosinophils # (0-0.7) k/uL Basophils # (0-0.2) k/uL Sodium 139 (137-145) mmol/L Potassium 4.8 (3.5-5.1) mmol/L Chloride 110 H (98-107) mmol/L Carbon Dioxide 24 (22-30) mmol/L Anion Gap 5 mmol/L BUN 12 (7-17) mg/dL Creatinine 0.60 (0.52-1.04) mg/dL Est GFR (CKD-EPI)AfAm >90 (>60 ml/min/1.73 sqM) Est GFR (CKD-EPI)NonAf >90 (>60 ml/min/1.73 sqM) Glucose 91 (74-99) mg/dL Plasma Lactic Acid Bentley 0.8 (0.7-2.0) mmol/L Calcium 9.2 (8.4-10.2) mg/dL Total Bilirubin 1.0 (0.2-1.3) mg/dL AST 60 H (14-36) U/L ALT 26 (4-34) U/L Alkaline Phosphatase 47 (38-126) U/L Total Protein 7.5 (6.3-8.2) g/dL Albumin 4.3 (3.5-5.0) g/dL Amylase 40 (30-110) U/L Lipase 23 (23-300) U/L Urine Color Red Urine Appearance Cloudy H (Clear) Urine pH 5.5 (5.0-8.0) Ur Specific Acme 1.030 (1.001-1.035) Urine Protein 1+ H (Negative) Urine Glucose (UA) Negative (Negative) Urine Ketones Trace H (Negative) Urine Blood Large H (Negative) Urine Nitrite Negative (Negative) Urine Bilirubin Negative (Negative) Urine Urobilinogen 2.0 (<2.0) mg/dL Ur Leukocyte Esterase Moderate H (Negative) Urine RBC >182 H (0-5) /hpf Urine WBC 60 H (0-5) /hpf Ur Squamous Epith Cells 1 (0-4) /hpf Urine Mucus Rare H (None) /hpf Urine HCG, Qual (Not Detectd) 08/24/23 08/24/23 Range/Units 18:27 18:44 WBC 13.0 H (3.8-10.6) k/uL RBC 4.77 (3.80-5.40) m/uL Hgb 12.1 (11.4-16.0) gm/dL Hct 37.6 (34.0-46.0) % MCV 78.9 L (80.0-100.0) fL MCH 25.4 (25.0-35.0) pg MCHC 32.2 (31.0-37.0) g/dL RDW 14.1 (11.5-15.5) % Plt Count 356 (150-450) k/uL MPV 7.2 Neutrophils % 63 % Lymphocytes % 26 % Monocytes % 6 % Eosinophils % 3 % Basophils % 1 % Neutrophils # 8.2 H (1.3-7.7) k/uL Lymphocytes # 3.3 (1.0-4.8) k/uL Monocytes # 0.8 (0-1.0) k/uL Eosinophils # 0.4 (0-0.7) k/uL Basophils # 0.1 (0-0.2) k/uL Sodium (137-145) mmol/L Potassium (3.5-5.1) mmol/L Chloride (98-107) mmol/L Carbon Dioxide (22-30) mmol/L Anion Gap mmol/L BUN (7-17) mg/dL Creatinine (0.52-1.04) mg/dL Est GFR (CKD-EPI)AfAm (>60 ml/min/1.73 sqM) Est GFR (CKD-EPI)NonAf (>60 ml/min/1.73 sqM) Glucose (74-99) mg/dL Plasma Lactic Acid Bentley (0.7-2.0) mmol/L Calcium (8.4-10.2) mg/dL Total Bilirubin (0.2-1.3) mg/dL AST (14-36) U/L ALT (4-34) U/L Alkaline Phosphatase (38-126) U/L Total Protein (6.3-8.2) g/dL Albumin (3.5-5.0) g/dL Amylase (30-110) U/L Lipase (23-300) U/L Urine Color Urine Appearance (Clear) Urine pH (5.0-8.0) Ur Specific Acme (1.001-1.035) Urine Protein (Negative) Urine Glucose (UA) (Negative) Urine Ketones (Negative) Urine Blood (Negative) Urine Nitrite (Negative) Urine Bilirubin (Negative) Urine Urobilinogen (<2.0) mg/dL Ur Leukocyte Esterase (Negative) Urine RBC (0-5) /hpf Urine WBC (0-5) /hpf Ur Squamous Epith Cells (0-4) /hpf Urine Mucus (None) /hpf Urine HCG, Qual Not Detected (Not Detectd) Disposition Clinical Impression: Abdominal pain, Urinary tract infection Disposition: HOME SELF-CARE Condition: Good Instructions (If sedation given, give patient instructions): Urinary Tract I nfection in Women (ED), Abdominal Pain (ED) Prescriptions: Sulfamethox-Tmp 800-160Mg [Bactrim Ds] 1 each PO Q12HR #6 tab Is patient prescribed a controlled substance at d/c from ED?: No Referrals: Feliz Medina DO [Primary Care Provider] - 1-2 days
[2023-08-24 19:33] VITALS: BP 136/103; PULSE 78
== END 2023-08-24 19:39 | disposition home or self-care (01) ==
LOC: EC 15:48
DX: N39.0 Urinary tract infection, site not specified (principal); K42.9 Umbilical hernia without obstruction or gangrene; K76.0 Fatty (change of) liver, not elsewhere classified; N20.0 Calculus of kidney; F17.290 Nicotine dependence, other tobacco product, uncomplicated; Z88.8 Allergy status to other drugs, medicaments and biological substances
CPT/HCPCS: 36415; 74176; 80053; 81001; 81025; 82150; 83605; 83690; 85025; 99284

== ENCOUNTER → 2023-12-05 | Outpatient (CLI) | payer BC, OTHER ==
--- NOTE | 2023-12-05 14:09 | P.HPBAR ---
Bariatric H&P - History & Physicial H&P Date: 12/05/23 History & Physicial: Visit/CC: Patient initial contact: Initial weight: Initial weight in pounds: Height: Initial BMI: Last weight: Current weight: Current weight in pounds: Current BMI: Almond body weight (based on NIH guidelines): Excess body weight loss: The patient is a 28 year-old F who presents for Bariatric Assessment. Patient here today to discuss possible sleeve gastrectomy. Patient states she has suffered with obesity since middle school. Weight was around 260 in eighth grade. Patient has a family history of obesity. She has tried variety of diets, exercise, and medications including Adipex and GLP-1 agonists. Unfortunately has not seen good success with these. Patient suffers from fatty liver, chronic back pain, anxiety, ADHD. Surgical history includes laparoscopic cholecystectomy and . Current BMI 50. Denies DVT or dysphagia. Patient does vape.. Patient has history of epigastric pain. Underwent recent EGD showing mild gastritis. Very rare episodes of GERD. Review of Systems The patient denies any acute changes in vision or hearing, no dysphagia or odynophagia, no chest pain or shortness of breath, no dysuria or hematuria, no headache, no runny nose, no rectal bleeding or melena, no unexplained weight loss Past Medical History Past Medical History: No Reported History, GERD/Reflux History of Any Multi-Drug Resistant Organisms: None Reported Past Surgical History: Section, Cholecystectomy Additional Past Surgical History / Comment(s): Mole removed left axillary, back pain Past Anesthesia/Blood Transfusion Reactions: No Reported Reaction Additional Past Anesthesia/Blood Transfusion Reaction / Comm: no blood transfusion reaction Past Psychological History: Depression Smoking Status: Current every day smoker, Vaper - Past Family History Father Additional Family Medical History / Comment(s): neck fusion, lyme disease Mother Family Medical History: Diabetes Mellitus, Hypertension Additional Family Medical History / Comment(s): Arthritis Surgical - Exam Physical exam: General: Well-developed, well-nourished HEENT: Normocephalic, sclerae nonicteric Abdomen: Nontender, nondistended Extremities: No edema Neuro: Alert and oriented Bariatric Assessment & Plan (1) Morbid obesity with BMI of 50.0-59.9, adult Narrative/Plan: 28-year-old female here for initial discussion regarding sleeve gastrectomy. Discussed the risks, benefits, expected weight loss with the commonly performed weight loss surgeries. Patient remains interested in sleeve gastrectomy at this time. Patient will need to stop vaping prior to surgery. No need to repeat EGD at this time. Obtain preoperative medical clearance. Obtain psychiatric evaluation. Check preoperative lab work. Follow-up after this is complete to discuss surgery and scheduling further. Status: Acute Bariatric Checklist Checklist: Plan: Checklist: EGD: 1. Hiatal hernia: 2. H. Pylori: HgbA1c: Vitamin D: Smoking: Current every day smoker Primary care physician referral: Psychiatry clearance: Cardiology clearance: Sleep study: Diet journal: VTE risk score: VTE risk level: Rehab needs at discharge:
[2023-12-05 14:16] VITALS: BP 148/80; PULSE 84; RESP 16; TEMP 97.4; BMI 47.8
[2023-12-05 19:13] LABS: HCT 39.6 % (37.2-46.3); HGB 12.1 g/dL (12.0-15.0); MCH 25.5 pg (27.0-32.0); MCHC 30.6 g/dL (32.0-37.0); MCV 83.4 FL (80.0-97.0); NRBC Per 100 WBC 0 X 10*3/uL (0.00-0.01); Platelet Count 349 X 10*3/uL (140-440); RBC 4.75 X 10*6/uL (4.10-5.20); RDW 15.5 % (11.5-14.5); WBC 9.82 X 10*3/uL (4.50-10.00)
[2023-12-05 20:19] LABS: ALT 35 U/L (8-44); AST 24 U/L (13-35); Albumin 4.1 g/dL (3.8-4.9); Albumin/Globulin Ratio 1.58 Ratio (1.60-3.17); Alkaline Phosphatase 70 U/L (41-126); BUN/Creat Ratio 18.14 Ratio (12.00-20.00); Blood Urea Nitrogen 12.7 mg/dL (9.0-27.0); Calcium 9.2 mg/dL (8.7-10.3); Carbon Dioxide 23.1 mmol/L (21.6-31.8); Chloride 108 mmol/L (96-109); Globulin 2.6 g/dL (1.6-3.3); Glucose 104 mg/dL (70-110); Iron 40 UG/DL (50-170); Potassium 4.5 mmol/L (3.5-5.5); Sodium 141 mmol/L (135-145); Total Bilirubin <0.2 mg/dL (0.3-1.2); Total Iron Binding Capacity 336 UG/DL (228-460); Total Protein 6.7 g/dL (6.2-8.2)
== END ==
LOC: BARWHC3 13:35
PROVIDERS: ATTEND Surgery
CPT/HCPCS: 80053; 82306; 82607; 82746; 83036; 83540; 83550; 84425; 85027; 93005; 99202